=== PATIENT | female | born 1990 | race African-American/Black ===

== ENCOUNTER 2016-09-17 20:13 | Emergency (ER) | payer OTHER ==
[2016-09-17 20:22] VITALS: BP 125/79; PULSE 92; TEMP 98.4; BMI 26.6
--- NOTE | 2016-09-17 20:29 | PDOC ---
History of Present Illness - General Chief Complaint: Headache Stated Complaint: HEADACHE,PAIN Time Seen by Provider: 09/17/16 20:28 Past History - Past Medical History Allergies/Adverse Reactions: Allergies Allergy/AdvReac Type Severity Reaction Status Date / Time No Known Allergies Allergy Verified 09/17/16 20:23 Home Medications: Ambulatory Orders Albuterol Sulfate Inhaler - [Ventolin HFA Inhaler -] 2 inh PO Q4H #1 inh Azithromycin [Zithromax Z-SHALOM (5 DAYS) -] 250 mg PO ASDIR #6 tablet 02/09/14 Other medical history: left ovarian cyst - Reproductive History (#): 3 Cervical CA: No Dysfunctional Uterine Bleeding: No Ectopic : No Endometrial CA: No Polycystic Ovaries: No Therapeutic (s) & number: Yes (2) Tubal Ligation: No - Immunization History Immunization Up to Date: Yes - Psycho/Social/Smoking Cessation Hx Anxiety: No Suicidal Ideation: No Smoking Status: No Smoking History: Never smoked Number of Cigarettes Smoked Daily: 1 Information on smoking cessation initiated: No Hx Alcohol Use: Yes (SOCIAL) Drug/Substance Use Hx: No Substance Use Type: Cocaine, Marijuana Hx Substance Use Treatment: No *Physical Exam - Vital Signs Last Vital Signs Temp Pulse Resp BP Pulse Ox 98.4 F 92 H 18 125/79 99 09/17/16 20:19 09/17/16 20:19 09/17/16 20:19 09/17/16 20:19 09/17/16 20:19
--- NOTE | 2016-09-17 21:38 | PDOC ---
History of Present Illness - General History Source: Patient Exam Limitations: No Limitations - History of Present Illness Initial Comments: 09/17/16 21:57 The patient is a 26-year-old female with a significant past medical history of an ovarian cyst, and presents to the emergency department with headache, ear pain, and abdominal pain since 20 hours ago. She reports the pain to her left jehovah's witness, eyeball, and ear, which she describes as a continuous sharp, throbbing, and pressure-like sensation. She reports relief when she rubs robustly on those areas. She reports she took 2 extra strength Tylenol and Benadryl earlier today which put her to sleep for a few hours. She states she has not experienced this type of pain before. She also reports of nausea and hot flashes in the morning accompanied by a sharp, pressure-like abdominal pain, located at the LUQ. She states she also had an intravenous injection of cocaine earlier this month on her left arm and is concerned about a knot at the point of injection. The patient denies chest pain, shortness of breath, visual changes, and dizziness. The patient denies vomit, diarrhea and constipation. The patient denies dysuria, frequency, urgency and hematuria. LMP- ended 2 days ago Allergies: NKDA Past Surgical History: None reported Social History: Current everyday smoker, occasional substance use PCP: Dr. Isidro Davidson <Ara Mccauley - Last Filed: 09/17/16 21:57> - General History Source: Patient <Jodi Ramsay - Last Filed: 09/17/16 22:33> <Chuyita Faustin - Last Filed: 09/18/16 21:31> - General Chief Complaint: Headache Stated Complaint: HEADACHE,PAIN Time Seen by Provider: 09/17/16 20:28 Past History <Ara Mccauley - Last Filed: 09/17/16 21:57> - Past Medical History Other medical history: left ovarian cyst - Reproductive History (#): 3 Cervical CA: No Dysfunctional Uterine Bleeding: No Ectopic : No Endometrial CA: No Polycystic Ovaries: No Therapeutic (s) & number: Yes (2) Tubal Ligation: No - Immunization History Immunization Up to Date: Yes - Psycho/Social/Smoking Cessation Hx Anxiety: No Suicidal Ideation: No Smoking Status: No Smoking History: Never smoked Number of Cigarettes Smoked Daily: 1 Information on smoking cessation initiated: No Hx Alcohol Use: Yes (SOCIAL) Drug/Substance Use Hx: No Substance Use Type: Cocaine, Marijuana Hx Substance Use Treatment: No <Jodi Ramsay - Last Filed: 09/17/16 22:33> <Chuyita Faustin - Last Filed: 09/18/16 21:31> - Past Medical History Allergies/Adverse Reactions: Allergies Allergy/AdvReac Type Severity Reaction Status Date / Time No Known Allergies Allergy Verified 09/17/16 20:23 Home Medications: Ambulatory Orders NK [No Known Home Medication] 09/17/16 Review of Systems - Review of Systems Able to Perform ROS?: Yes Comments:: 09/17/16 21:57 CONSTITUTIONAL: Absent: fever, chills, diaphoresis, generalized weakness, malaise, loss of appetite HEENT: Present: (+) ear pain, (+) eye pain Absent: rhinorrhea, nasal congestion, throat pain, throat swelling, difficulty swallowing, mouth swelling, visual changes CARDIOVASCULAR: Absent: chest pain, syncope, palpitations, irregular heart rate, lightheadedness , peripheral edema RESPIRATORY: Absent: cough, shortness of breath, dyspnea with exertion, orthopnea, wheezing, stridor, hemoptysis GASTROINTESTINAL: Present: (+) abdominal pain, (+) nausea Absent: abdominal distension, vomiting, diarrhea, constipation, melena, hematochezia GENITOURINARY: Absent: dysuria, frequency, urgency, hesitancy, hematuria, flank pain, genital pain MUSCULOSKELETAL: Absent: myalgia, arthralgia, joint swelling SKIN: Absent: rash, itching, pallor HEMATOLOGIC/IMMUNOLOGIC: Absent: easy bleeding, easy bruising, lymphadenopathy, frequent infections ENDOCRINE: Absent: unexplained weight gain, unexplained weight loss, heat intolerance, cold intolerance NEUROLOGIC: Present: (+) headache Absent: focal weakness or paresthesias, dizziness, unsteady gait, seizure, mental status changes, bladder or bowel incontinence PSYCHIATRIC: Absent: anxiety, depression, suicidal or homicidal ideation, hallucinations. <Ara Mccauley - Last Filed: 09/17/16 21:57> - Review of Systems Able to Perform ROS?: Yes Comments:: 09/17/16 22:35 CONSTITUTIONAL: Absent: fever, chills, diaphoresis, generalized weakness, malaise, loss of appetite HEENT: Absent: rhinorrhea, nasal congestion, throat pain, throat swelling, difficulty swallowing, mouth swelling, ear pain, eye pain, visual Changes CARDIOVASCULAR: Absent: chest pain, loss of consciousness, palpitations, irregular heart rate, peripheral edema RESPIRATORY: Absent: cough, shortness of breath, dyspnea with exertion, orthopnea, wheezing, stridor, hemoptysis GASTROINTESTINAL: Absent: abdominal pain, abdominal distension, nausea, vomiting, diarrhea, constipation, melena, hematochezia GENITOURINARY: Absent: dysuria, frequency, urgency, hesitancy, hematuria, flank pain, genital pain MUSCULOSKELETAL: Absent: myalgia, arthralgia, joint swelling SKIN: Absent: rash, itching, pallor HEMATOLOGIC/IMMUNOLOGIC: Absent: easy bleeding, easy bruising, lymphadenopathy, frequent infections ENDOCRINE: Absent: unexplained weight gain, unexplained weight loss, heat intolerance, cold intolerance NEUROLOGIC: Absent: headache, focal weakness or paresthesias, dizziness, unsteady gait, seizure, mental status changes, bladder or bowel incontinence PSYCHIATRIC: Absent: anxiety, depression, suicidal or homicidal ideation, hallucinations. Is the patient limited Mosotho proficient: No <Jodi Ramsay - Last Filed: 09/17/16 22:33> *Physical Exam - Vital Signs Last Vital Signs Temp Pulse Resp BP Pulse Ox 98.4 F 92 H 18 125/79 99 09/17/16 20:19 09/17/16 20:19 09/17/16 20:19 09/17/16 20:19 09/17/16 20:19 - Physical Exam Comments: 09/17/16 21:57 GENERAL: Well developed, well nourished. Awake and alert. No acute distress. HEENT: Normocephalic, atraumatic. PERRLA, EOMI. No conjunctival pallor. Sclera are non- icteric. Moist mucous membranes. Oropharynx is clear. NECK: Supple. Full ROM. No JVD. Carotid pulses 2+ and symmetric, without bruits. No thyromegaly. No lymphadenopathy. CARDIOVASCULAR: Regular rate and rhythm. No murmurs, rubs, or gallops. Distal pulses are 2+ and symmetric. PULMONARY: No evidence of respiratory distress. Lungs clear to auscultation bilaterally. No wheezing, rales or rhonchi. ABDOMINAL: Soft. Non-tender. Non-distended. No rebound or guarding. No organomegaly. Normoactive bowel sounds. MUSCULOSKELETAL Normal range of motion at all joints. No bony deformities or tenderness. No CVA tenderness. EXTREMITIES: No cyanosis. No clubbing. No edema. No calf tenderness. SKIN: Warm and dry. Normal capillary refill. No rashes. No jaundice. NEUROLOGICAL: Alert, awake, appropriate. Cranial nerves 2-12 intact. No deficits to light touch and temperature in face, upper extremities and lower extremities. No motor deficits in the in face, upper extremities and lower extremities. Normoreflexic in the upper and lower extremities. Normal speech. Toes are down- going bilaterally. Gait is normal without ataxia. PSYCHIATRIC: Cooperative. Good eye contact. Appropriate mood and affect. <Mccauley,Ara - Last Filed: 09/17/16 21:57> - Vital Signs Last Vital Signs Temp Pulse Resp BP Pulse Ox 98.4 F 92 H 18 125/79 99 09/17/16 20:19 09/17/16 20:19 09/17/16 20:19 09/17/16 20:19 09/17/16 20:19 - Physical Exam Comments: 09/17/16 22:36 GENERAL: Well developed, well nourished. Awake and alert. No acute distress. HEENT: Normocephalic, atraumatic. PERRLA, EOMI. No conjunctival pallor. Sclera are non- icteric. Moist mucous membranes. Oropharynx is clear. NECK: Supple. Full ROM. No JVD. Carotid pulses 2+ and symmetric, without bruits. No thyromegaly. No lymphadenopathy. CARDIOVASCULAR: Regular rate and rhythm. No murmurs, rubs, or gallops. Distal pulses are 2+ and symmetric. PULMONARY: No evidence of respiratory distress. Lungs clear to auscultation bilaterally. No wheezing, rales or rhonchi. ABDOMINAL: Soft. Non-tender. Non-distended. No rebound or guarding. No organomegaly. Normoactive bowel sounds. MUSCULOSKELETAL Normal range of motion at all joints. No bony deformities or tenderness. No CVA tenderness. EXTREMITIES: No cyanosis. No clubbing. No edema. No calf tenderness. SKIN: Warm and dry. Normal capillary refill. No rashes. No jaundice. NEUROLOGICAL: Alert, awake, appropriate. Cranial nerves 2-12 intact. No deficits to light touch and temperature in face, upper extremities and lower extremities. No motor deficits in the in face, upper extremities and lower extremities. Normoreflexic in the upper and lower extremities. Normal speech. Toes are down- going bilaterally. Gait is normal without ataxia. PSYCHIATRIC: Cooperative. Good eye contact. Appropriate mood and affect. <Jodi Ramsay - Last Filed: 09/17/16 22:33> - Vital Signs Last Vital Signs Temp Pulse Resp BP Pulse Ox 98.4 F 92 H 18 125/79 99 09/17/16 20:19 09/17/16 20:19 09/17/16 20:19 09/17/16 20:19 09/17/16 20:19 <Chuyita Faustin - Last Filed: 09/18/16 21:31> ED Treatment Course - Medications Given in the ED: ED Medications Discontinued Medications Generic Name Dose Route Start Last Admin Trade Name Freq PRN Reason Stop Dose Admin Ibuprofen 600 mg 09/17/16 22:29 09/17/16 22:33 Motrin - PO 09/17/16 22:30 600 mg ONCE ONE Administration <Chuyita Faustin - Last Filed: 09/18/16 21:31> *DC/Admit/Observation/Transfer - Attestations Scribe Attestion: 09/17/16 21:58 Documentation prepared by Ara Mccauley, acting as medical investigator for NOE Floyd. <Ara Mccauley - Last Filed: 09/17/16 21:57> - Discharge Dispostion Admit: No <Jodi Ramsay - Last Filed: 09/17/16 22:33> <Chuyita Faustin - Last Filed: 09/18/16 21:31> Diagnosis at time of Disposition: Headache Qualifiers: Headache type: tension-type Headache chronicity pattern: acute headache Intractability: not intractable Qualified Code(s): G44.209 - Tension-type headache, unspecified, not intractable - Discharge Dispostion Disposition: HOME Condition at time of disposition: Stable - Referrals Referrals: Isidro Davidson MD [Primary Care Provider] - Parrish Avalos MD [Staff Physician] - - Patient Instructions Printed Discharge Instructions: DI for Headache Additional Instructions: Increase fluids Rest Follow up with your physician or the Neurologist Return to the ER for severe/persistent/worsening symptoms
[2016-09-17] MEDS ORDERED: IBUPROFEN 600 MG TABLET (FP) PO ONE ×2 (22:29→22:31)
== END 2016-09-17 22:41 | disposition home or self-care (01) ==
LOC: JER 20:13
DX: G44.209 Tension-type headache, unspecified, not intractable (principal)
CPT/HCPCS: 99281-25

== ENCOUNTER 2016-11-11 19:02 | Emergency (ER) | payer OTHER ==
[2016-11-11 19:11] VITALS: BMI 25.4
--- NOTE | 2016-11-11 19:30 | PDOC ---
History of Present Illness - General History Source: Patient Exam Limitations: No Limitations - History of Present Illness Travel History: No Initial Comments: 11/11/16 20:27 LMP: 11/08/2016 26-year-old female with no medical history presents to the emergency department complaining of suprapubic pressure with right-sided flank discomfort. Discomfort is described as 4/10 dull nonradiating intermittent discomfort 2 hours with hematuria but denies urinary urgency/frequency, fever/chills, nausea/ vomiting, chest pain, shortness of breath, abdominal discomfort. Timing/Duration: reports: intermittent Quality: reports: mild Abdominal Pain Onset Location: reports: suprapubic Pain Radiation: reports: no radiation <Jodi Ramsay - Last Filed: 11/11/16 23:00> - History of Present Illness Initial Comments: 11/12/16 03:15 Pt seen by Midlevel Provider under my direct supervision. Documentation has been prepared under my direction and personally reviewed by me in its entirety. I attest that this document accurately reflects all work, treatment, procedures and medical decision-making performed. I agree with plan as outlined by Midlevel Provider. <Kenya Munoz I - Last Filed: 11/12/16 03:15> - General Chief Complaint: Pain Stated Complaint: STOMACH PAIN Time Seen by Provider: 11/11/16 19:28 Past History - Past Medical History Other medical history: Pt denies - Reproductive History (#): 3 Cervical CA: No Dysfunctional Uterine Bleeding: No Ectopic : No Endometrial CA: No Polycystic Ovaries: No Therapeutic (s) & number: Yes (2) Tubal Ligation: No - Immunization History Immunization Up to Date: Yes - Psycho/Social/Smoking Cessation Hx Anxiety: No Suicidal Ideation: No Smoking Status: No Smoking History: Never smoked Have you smoked in the past 12 months: No Number of Cigarettes Smoked Daily: 1 Information on smoking cessation initiated: No Hx Alcohol Use: No Drug/Substance Use Hx: No Substance Use Type: Cocaine, Marijuana Hx Substance Use Treatment: No <Jodi Ramsay - Last Filed: 11/11/16 23:00> <Kenya Munoz I - Last Filed: 11/12/16 03:15> - Past Medical History Allergies/Adverse Reactions: Allergies Allergy/AdvReac Type Severity Reaction Status Date / Time No Known Allergies Allergy Verified 11/11/16 19:08 Home Medications: Ambulatory Orders NK [No Known Home Medication] 09/17/16 Review of Systems - Review of Systems Able to Perform ROS?: Yes Comments:: 11/11/16 20:28 CONSTITUTIONAL: Absent: fever, chills, diaphoresis, generalized weakness, malaise, loss of appetite HEENT: Absent: rhinorrhea, nasal congestion, throat pain, throat swelling, difficulty swallowing, mouth swelling, ear pain, eye pain, visual Changes CARDIOVASCULAR: Absent: chest pain, loss of consciousness, palpitations, irregular heart rate, peripheral edema RESPIRATORY: Absent: cough, shortness of breath, dyspnea with exertion, orthopnea, wheezing, stridor, hemoptysis GASTROINTESTINAL: +suprapubic pain/ right flank pain Absent: abdominal pain, abdominal distension, nausea, vomiting, diarrhea, constipation, melena, hematochezia GENITOURINARY: Absent: dysuria, frequency, urgency, hesitancy, hematuria, genital pain MUSCULOSKELETAL: Absent: myalgia, arthralgia, joint swelling SKIN: Absent: rash, itching, pallor HEMATOLOGIC/IMMUNOLOGIC: Absent: easy bleeding, easy bruising, lymphadenopathy, frequent infections ENDOCRINE: Absent: unexplained weight gain, unexplained weight loss, heat intolerance, cold intolerance NEUROLOGIC: Absent: headache, focal weakness or paresthesias, dizziness, unsteady gait, seizure, mental status changes, bladder or bowel incontinence PSYCHIATRIC: Absent: anxiety, depression, suicidal or homicidal ideation, hallucinations. Is the patient limited Ecuadorean proficient: No <Jodi Ramsay - Last Filed: 11/11/16 23:00> *Physical Exam - Vital Signs Last Vital Signs Temp Pulse Resp BP Pulse Ox 98.0 F 60 20 143/74 100 11/11/16 19:09 11/11/16 19:09 11/11/16 19:09 11/11/16 19:09 11/11/16 19:09 - Physical Exam Comments: 11/11/16 20:29 GENERAL: Well developed, well nourished. Awake and alert. No acute distress. HEENT: Normocephalic, atraumatic. PERRLA, EOMI. No conjunctival pallor. Sclera are non- icteric. Moist mucous membranes. Oropharynx is clear. NECK: Supple. Full ROM. No JVD. Carotid pulses 2+ and symmetric, without bruits. No thyromegaly. No lymphadenopathy. CARDIOVASCULAR: Regular rate and rhythm. No murmurs, rubs, or gallops. Distal pulses are 2+ and symmetric. PULMONARY: No evidence of respiratory distress. Lungs clear to auscultation bilaterally. No wheezing, rales or rhonchi. ABDOMINAL: Soft. Non-tender. Non-distended. No rebound or guarding. No organomegaly. Normoactive bowel sounds. MUSCULOSKELETAL Normal range of motion at all joints. No bony deformities or tenderness. No CVA tenderness. EXTREMITIES: No cyanosis. No clubbing. No edema. No calf tenderness. SKIN: Warm and dry. Normal capillary refill. No rashes. No jaundice. NEUROLOGICAL: Alert, awake, appropriate. Cranial nerves 2-12 intact. No deficits to light touch and temperature in face, upper extremities and lower extremities. No motor deficits in the in face, upper extremities and lower extremities. Normoreflexic in the upper and lower extremities. Normal speech. Toes are down- going bilaterally. Gait is normal without ataxia. PSYCHIATRIC: Cooperative. Good eye contact. Appropriate mood and affect. Pelvic: External genitalia normal without lesions. Vaginal vault is clear without blood or discharge. Cervix is long and closed. No cervical motion tenderness. Uterus is nontender and normal in size. Adnexa are nontender and without masses. <Jodi Ramsay - Last Filed: 11/11/16 23:00> - Vital Signs Last Vital Signs Temp Pulse Resp BP Pulse Ox 97.2 F L 18 L 20 128/70 100 11/11/16 22:57 11/11/16 22:57 11/11/16 22:57 11/11/16 22:57 11/11/16 22:57 <Kenya Munoz I - Last Filed: 11/12/16 03:15> ED Treatment Course - LABORATORY CBC & Chemistry Diagram: 11/11/16 19:50 11/11/16 19:50 - RADIOLOGY Radiograph Interpretation: 11/11/16 20:[address]: No CT evidence of urolithiasis or obstructive pathology small amount of free fluid is noted within the cul-de-sac which may be physiologic in nature 11/11/16 22:58 <Jodi Ramsay - Last Filed: 11/11/16 23:00> - LABORATORY CBC & Chemistry Diagram: 11/11/16 19:50 11/11/16 19:50 - ADDITIONAL ORDERS Additional order review: Laboratory Results 11/11/16 11/11/16 11/11/16 20:09 19:50 19:34 Sodium 140 Potassium 3.7 Chloride 108 H Carbon Dioxide 28 Anion Gap 4 L BUN 7 Creatinine 0.9 Creat Clearance w eGFR > 60 Random Glucose 93 Calcium 8.5 Total Bilirubin 0.2 D AST 9 L D ALT 13 Alkaline Phosphatase 57 Total Protein 6.4 Albumin 3.4 Urine Color Yellow Urine Appearance Cloudy Urine pH 8.0 D Ur Specific Painter 1.020 Urine Protein 1+ H Urine Glucose (UA) Negative Urine Ketones Negative Urine Blood 2+ H Urine Nitrite Negative Urine Bilirubin Negative Urine Urobilinogen 2.0 H Urine RBC 1010 Urine WBC 8 Ur Epithelial Cells Moderate Urine Bacteria Rare Urine Mucus Rare Urine HCG, Qual Negative 11/11/16 19:50 RBC 3.63 MCV 95.4 MCHC 34.0 RDW 13.6 MPV 8.8 Neutrophils % 56.1 Lymphocytes % 35.2 Monocytes % 6.2 Eosinophils % 1.7 Basophils % 0.8 <Kenya Munoz I - Last Filed: 11/12/16 03:15> Progress Note - Progress Note Progress Note: 2205hrs: Went to reassess the patient but she asked me to return later because she is watching an episode on her iPad. <Jodi Ramsay - Last Filed: 11/11/16 23:00> *DC/Admit/Observation/Transfer - Discharge Dispostion Admit: No <Jodi Ramsay - Last Filed: 11/11/16 23:00> <Kenya Munoz I - Last Filed: 11/12/16 03:15> Diagnosis at time of Disposition: Hematuria Qualifiers: Hematuria type: unspecified type Qualified Code(s): R31.9 - Hematuria, unspecified - Discharge Dispostion Disposition: HOME Condition at time of disposition: Stable - Referrals Referrals: Sandra Davidson [Primary Care Provider] - Rosales Palomino MD [Staff Physician] - Demetrius De La Rosa MD [Staff Physician] - - Patient Instructions Printed Discharge Instructions: DI for Hematuria Additional Instructions: Follow-up with your physician and the urologist/farm loan representative listed on your discharge. Return back to the emergency department for severe/persistent or worsening symptoms. Urologist: Dr. Palomino Unit Aide Tech: Drt. De La Rosa Print Language: COMORAN
[2016-11-11 19:50] LABS: URINE APPEARANCE CLOUDY; URINE BILIRUBIN NEGATIVE (NEGATIVE); URINE BLOOD 2+ (NEGATIVE); URINE COLOR YELLOW; URINE GLUCOSE (UA) NEGATIVE (NEGATIVE); URINE KETONE NEGATIVE (NEGATIVE); URINE LEUK ESTERASE TRACE (NEGATIVE); URINE NITRITE NEGATIVE (NEGATIVE)
[2016-11-11 19:55] LABS: URINE PROTEIN 1+ (NEGATIVE)
[2016-11-11 20:02] LABS: BASOPHIL 0.8 % (0-2.0); EOSINOPHIL 1.7 % (0-4.5); MCH 32.4 pg (25.7-33.7); MEAN CELL VOLUME 95.4 fl (80-96); MEAN PLT VOLUME 8.8 fl (7.5-11.1); NEUTROPHILS 56.1 % (42.8-82.8); PLATELET COUNT 243 K/MM3 (134-434); RDW 13.6 % (11.6-15.6)
[2016-11-11 20:31] LABS: ALBUMIN 3.4 g/dl (3.4-5.0); ANION GAP 4 (8-16); BILIRUBIN,TOTAL 0.2 mg/dL (0.2-1.0); CALCIUM 8.5 mg/dL (8.5-10.1); CO2 28 mmol/L (21-32); CREATININE 0.9 mg/dL (0.55-1.02); GLUCOSE,RANDOM 93 mg/dL (74-106); SGOT/AST 9 U/L (15-37); SGPT/ALT 13 U/L (12-78); TOT PROT 6.4 g/dl (6.4-8.2)
[2016-11-11 20:32] LABS: ALK PHOS 57 U/L (45-117)
[2016-11-11 20:44] LABS: URINE RBC 1010 /hpf (0-3)
[2016-11-11 20:45] LABS: URINE BACTERIA RARE /hpf (NONE SEEN); URINE MUCUS RARE; URINE WBC 8 /hpf (3-5)
[2016-11-11 22:58] VITALS: BP 128/70; PULSE 18; TEMP 97.2
== END 2016-11-11 23:02 | disposition home or self-care (01) ==
LOC: JER 19:02
DX: R31.9 Hematuria, unspecified (principal)
CPT/HCPCS: 36415; 74176; 80053; 81003; 81015; 84703; 85025; 87086; 99283-25

== ENCOUNTER 2018-06-04 09:42 | Emergency (ER) | payer SELFPAY ==
[2018-06-04] MEDS ORDERED: IBUPROFEN 400 MG TABLET (FP) PO ONE ×2 (10:06→10:39)
[2018-06-04 10:07] VITALS: BP 108/68; PULSE 121; BMI 21.9
[2018-06-04] MEDS ORDERED: ALBUTEROL SO4 2.5/IPRATROPIUM 0.5 INH SOL 3 ML VIAL.NEB. NEB ONE ×2 (10:31→10:40)
--- NOTE | 2018-06-04 10:36 | PDOC ---
History of Present Illness - General Chief Complaint: Cold Symptoms Stated Complaint: PAIN Time Seen by Provider: 06/04/18 10:24 History Source: Patient Exam Limitations: No Limitations - History of Present Illness Initial Comments: 06/04/18 10:32 28 year old female with no significant medical or surgical history presents with complaints of cold symptoms since last night. Patient states sorethroat, with headache and bodyaches and very little coughing. Took ibuprofen with no relief of symptoms. States no ill contacts. Timing/Duration: reports: yesterday Severity: reports: moderate Possible Cause: Yes: no prior episodes Modifying Factors: improves with: rest Associated Symptoms: reports: fever/chills, headache, sore throat Aspirin Received prior to arrival: Yes: no aspirin today ASA Contraindications(Core Measure): No: Allergy Beta Michael Contraindications(Core Measure): Yes: Not Prescribed Beta Michael Given by EMS(Core Measure): No Beta Michael Taken at Home(Core Measure): No Beta Michael Not Indicated at this Time(Core Measure): No Past History - Travel Traveled outside of the country in the last 30 days: No Close contact w/someone who was outside of country & ill: No - Past Medical History Allergies/Adverse Reactions: Allergies Allergy/AdvReac Type Severity Reaction Status Date / Time No Known Allergies Allergy Verified 06/04/18 10:00 Home Medications: Ambulatory Orders Albuterol Sulfate [Albuterol Sulfate Hfa] 8.5 gm IH QID PRN #1 [email or web address] Ibuprofen 600 mg PO QID #20 tablet 06/04/18 Ibuprofen [Motrin -] 600 mg PO TID 06/04/18 Loratadine [Claritin] 10 mg PO DAILY #10 tablet 06/04/18 COPD: No - Reproductive History (#): 3 Cervical CA: No Dysfunctional Uterine Bleeding: No Ectopic : No Endometrial CA: No Polycystic Ovaries: No Therapeutic (s) & number: Yes (2) Tubal Ligation: No - Immunization History Immunization Up to Date: Yes - Suicide/Smoking/Psychosocial Hx Smoking Status: No Smoking History: Never smoked Have you smoked in the past 12 months: No Number of Cigarettes Smoked Daily: 1 Hx Alcohol Use: No Drug/Substance Use Hx: No Substance Use Type: None Hx Substance Use Treatment: No Respiratory Specific PMHX - Complaint Specific PMHX Bronchitis: Yes Review of Systems - Review of Systems Able to Perform ROS?: Yes Is the patient limited Congolese proficient: No Constitutional: Yes: Chills, Fever, Malaise, Weakness HEENTM: Yes: Throat Pain Respiratory: Yes: Shortness of Breath Cardiac (ROS): No: Chest Pain, Lightheadedness ABD/GI: Yes: Poor Appetite, Poor Fluid Intake Musculoskeletal: Yes: Joint Pain *Physical Exam - Vital Signs Last Vital Signs Temp Pulse Resp BP Pulse Ox 101.1 F H 121 H 26 H 108/68 99 06/04/18 10:05 06/04/18 10:05 06/04/18 10:05 06/04/18 10:05 06/04/18 10:05 - Physical Exam General Appearance: Yes: Nourished, Appropriately Dressed. No: Apparent Distress HEENT: positive: JOHN, Pharyngeal Erythema, Tonsillar Erythema Neck: positive: Supple. negative: Lymphadenopathy (R), Lymphadenopathy (L) Respiratory/Chest: positive: Lungs Clear, Normal Breath Sounds Cardiovascular: positive: Regular Rhythm, Regular Rate Neurologic: positive: deck specialist II-XII NML intact, Fully Oriented, Alert ED Treatment Course - Medications Given in the ED: ED Medications Discontinued Medications Generic Name Dose Route Start Last Admin Trade Name Freq PRN Reason Stop Dose Admin Ibuprofen 800 mg 06/04/18 10:06 06/04/18 10:07 Motrin - PO 06/04/18 10:07 800 mg NOW ONE Administration Medical Decision Making - Medical Decision Making 06/04/18 10:36 28 year old female with no significant medical or surgical history presents with complaints of cold symptoms since last night. Plan: urine preg neb treatment received ibuprofen in triage chest xray 06/04/18 10:36 throat culture *DC/Admit/Observation/Transfer Diagnosis at time of Disposition: Flu-like symptoms, Bronchitis - Discharge Dispostion Disposition: HOME Condition at time of disposition: Good Decision to Admit order: No - Prescriptions Prescriptions: Albuterol Sulfate [Albuterol Sulfate Hfa] 8.5 gm IH QID PRN #1 hfa.[email or web address] PRN Reason: Cough Ibuprofen 600 mg PO QID #20 tablet Loratadine [Claritin] 10 mg PO DAILY #10 tablet - Referrals - Patient Instructions Printed Discharge Instructions: DI for Acute Bronchitis, DI for Viral Upper Respiratory Infection -- Adult Additional Instructions: Please take medication as prescribed Drink plenty fluids Rest Take ibuprofen ever 6 hours with food for fever and bodyache Call primary physician for follow up appointment - Post Discharge Activity Forms/Work/School Notes: Back to Work
[2018-06-04] MEDS ORDERED: ALBUTEROL SO4 2.5/IPRATROPIUM 0.5 INH SOL 3 ML VIAL.NEB. NEB SCH (11:15)
[2018-06-04 11:37] VITALS: TEMP 99.3
== END 2018-06-04 11:57 | disposition home or self-care (01) ==
LOC: JERFT 09:42
PROC: 3E0F7GC Introduction of Other Therapeutic Substance into Respiratory Tract, Via Natural or Artificial Opening (ICD-10-PCS; principal; 2018-06-04)
DX: J40 Bronchitis, not specified as acute or chronic (principal); J11.1 Influenza due to unidentified influenza virus with other respiratory manifestations
CPT/HCPCS: 71046-TC-FY; 84703; 87070; 87880; 99281-25

== ENCOUNTER 2019-01-14 11:21 | Emergency (ER) | payer OTHER ==
[2019-01-14 11:35] VITALS: BP 116/82; PULSE 94; TEMP 98.3; BMI 27.9
[2019-01-14] MEDS ORDERED: predniSONE 20 MG TABLET (UD) PO ONE (12:11)
[2019-01-14] MEDS: ALBUTEROL SO4 2.5/IPRATROPIUM 0.5 INH SOL 3 ML VIAL.NEB. NEB SCH ×4 (12:12→13:01)
[2019-01-14] MEDS ORDERED: predniSONE 20 MG TABLET (UD) ONE (12:14)
[2019-01-14] MEDS ORDERED: ALBUTEROL SO4 2.5/IPRATROPIUM 0.5 INH SOL 3 ML VIAL.NEB. NEB ONE (12:14)
--- NOTE | 2019-01-14 13:04 | PDOC ---
History of Present Illness - General Chief Complaint: Wheezing Stated Complaint: LIGHTHEADED/NAUSEA Time Seen by Provider: 01/14/19 11:51 History Source: Patient Exam Limitations: No Limitations - History of Present Illness Initial Comments: 01/14/19 12:09 28-year-old female presents to ED with continual wheezing and coughing despite using her inhaler. Patient states history of asthma along with positive history of cigarette smoking. Patient denies fever, chills, chest pain, productive cough, or weakness. Patient states wheezing does prevent her from sleeping and is otherwise just tired. Timing/Duration: reports: getting worse Severity: reports: mild, moderate Possible Cause: Yes: occasional episodes Modifying Factors: improves with: albuterol inhaler, coughing Associated Symptoms: reports: cough, shortness of breath, wheezing Past History - Travel Traveled outside of the country in the last 30 days: No Close contact w/someone who was outside of country & ill: No - Past Medical History Allergies/Adverse Reactions: Allergies Allergy/AdvReac Type Severity Reaction Status Date / Time No Known Allergies Allergy Verified 06/04/18 10:00 Home Medications: Ambulatory Orders Albuterol Sulfate [Albuterol Sulfate Hfa] 8.5 gm IH QID PRN #1 hfa.[email or web address] Ibuprofen 600 mg PO QID #20 tablet 06/04/18 Ibuprofen [Motrin -] 600 mg PO TID 06/04/18 Loratadine [Claritin] 10 mg PO DAILY #10 tablet 06/04/18 COPD: No - Reproductive History (#): 3 Cervical CA: No Dysfunctional Uterine Bleeding: No Ectopic : No Endometrial CA: No Polycystic Ovaries: No Therapeutic (s) & number: Yes (2) Tubal Ligation: No - Immunization History Immunization Up to Date: Yes - Psycho Social/Smoking Cessation Hx Smoking Status: No Smoking History: Unknown if ever smoked Have you smoked in the past 12 months: No Number of Cigarettes Smoked Daily: 1 Information on smoking cessation initiated: No Hx Alcohol Use: No Drug/Substance Use Hx: No Substance Use Type: None Hx Substance Use Treatment: No Patient Lives Alone: No Lives with/in: parents Respiratory Specific PMHX - Complaint Specific PMHX Hx Asthma: Yes Hx Bronchitis: Yes Review of Systems - Review of Systems Able to Perform ROS?: Yes Constitutional: No: Symptoms Reported HEENTM: No: Symptoms Reported Respiratory: Yes: Cough, Shortness of Breath, Wheezing Cardiac (ROS): No: Symptoms Reported ABD/GI: No: Symptoms Reported : No: Symptoms Reported Musculoskeletal: No: Symptoms Reported Integumentary: No: Symptoms Reported Neurological: No: Symptoms reported Hematologic/Lymphatic: No: Symptoms Reported *Physical Exam - Vital Signs Last Vital Signs Temp Pulse Resp BP Pulse Ox 98.3 F 94 H 16 116/82 96 01/14/19 11:32 01/14/19 11:32 01/14/19 11:32 01/14/19 11:32 01/14/19 11:32 - Physical Exam General Appearance: Yes: Nourished, Appropriately Dressed. No: Apparent Distress HEENT: negative: Pale Conjunctivae Neck: positive: Supple Respiratory/Chest: positive: Wheezing (Bilateral inspiratory and expiratory.). negative: Respiratory Distress, Accessory Muscle Use, Labored Respiration, Rapid RR Cardiovascular: positive: Regular Rhythm, Regular Rate. negative: Murmur Gastrointestinal/Abdominal: positive: Soft. negative: Tenderness Integumentary: positive: Normal Color, Warm, Moist Neurologic: positive: Motor Strength 5/5 (ambulatory) ED Treatment Course - Medications Given in the ED: ED Medications Discontinued Medications Generic Name Dose Route Start Last Admin Trade Name Freq PRN Reason Stop Dose Admin Prednisone 60 mg 01/14/19 12:11 01/14/19 12:21 Deltasone - PO 01/14/19 12:12 60 mg ONCE ONE Administration Medical Decision Making - Medical Decision Making 01/14/19 12:04 Chief complaint: Wheezing cough and mild shortness of breath with coughing episodes for the past 2 days. Patient with history of asthma and bronchitis along with daily cigarette smoking. Exam: Patient with auditory wheezing bilaterally on inspiration and expiration. No accessory muscle usage no dyspnea. Vital signs stable. Plan: P.o. prednisone DuoNeb x4 and reevaluation. 01/14/19 13:55 Patient states feeling much better. Patient with mild expiratory wheeze bilaterally. Oxygen level 96 with a heart rate of 98. Discharge - Discharge Information Problems reviewed: Yes Clinical Impression/Diagnosis: Asthma exacerbation, Acute wheezy bronchitis Condition: Improved Disposition: HOME - Follow up/Referral Referrals: Isidro Davidson MD [Primary Care Provider] - - Patient Discharge Instructions Patient Printed Discharge Instructions: DI for Asthma -- Adult Additional Instructions: Please take prednisone starting tomorrow since you were given your first dose here today. Please use inhaler as needed for wheezing. Take antibiotics as prescribed. Do not go outdoors to avoid bronchospasm. Rest and drink plenty of fluids. - Post Discharge Activity Work/Back to School Note: Parent(s) Back to Work Note
== END 2019-01-14 14:19 | disposition home or self-care (01) ==
LOC: JER 11:21
PROC: 3E0F7GC Introduction of Other Therapeutic Substance into Respiratory Tract, Via Natural or Artificial Opening (ICD-10-PCS; principal; 2019-01-14)
DX: J45.901 Unspecified asthma with (acute) exacerbation (principal); J20.9 Acute bronchitis, unspecified; F17.210 Nicotine dependence, cigarettes, uncomplicated
CPT/HCPCS: 94640; 99281-25

== ENCOUNTER 2019-02-12 17:33 | Emergency (ER) | payer OTHER ==
--- NOTE | 2019-02-12 17:38 | PDOC ---
History of Present Illness - General Stated Complaint: ASTHMA Time Seen by Provider: 02/12/19 17:38 - History of Present Illness Initial Comments: 02/12/19 17:55 28 year old woman with a history of asthma and cigarette smoking who presents with shortness of breath and wheezing that ongoing for the past several days but worse today. The patient reports that she had productive cough last week with green phlegm and was given an antibiotic course that she completed. She reports that this week she has been having cough productive of clear phlegm. She used her albuterol inhaler and machine at home throughout the day but her symptoms worsened just prior to calling EMS. She does not currently take home steroids. She denies chest pain, fever or any other concerning symptoms. She has never been intubated for her asthma. ROS GENERAL/CONSTITUTIONAL: No fever or chills. No weakness. HEAD, EYES, EARS, NOSE AND THROAT: No sore throat. CARDIOVASCULAR: No chest pain + shortness of breath RESPIRATORY: + cough, wheezing, No hemoptysis. SKIN: No rash PE GENERAL: Awake, alert, and fully oriented, in no acute distress HEAD: No signs of trauma, normocephalic, atraumatic EYES: EOMI, sclera anicteric, conjunctiva clear ENT: oropharynx clear without exudates. Moist mucosa NECK: Normal ROM, supple LUNGS: No distress, speaks full sentences, + diffuse expiratory wheeze HEART: Regular rate and rhythm, normal S1 and S2, no murmurs, rubs or gallops, peripheral pulses normal and equal bilaterally. ABDOMEN: Soft, nontender. No guarding, no rebound. No masses EXTREMITIES : Normal inspection, Normal range of motion, no edema. No clubbing or cyanosis. NEUROLOGICAL: Cranial nerves II through XII grossly intact. Normal speech, no focal sensorimotor deficits SKIN: Warm, Dry, normal turgor, no rashes or lesions noted MDM DDX including but not limited to: asthma exacerbation r/o pna ED Course: patient satting above 95 but with persistent and loud diffuse exp wheeze solumedrol, mag and 3x duoneb on reassessment patient improvement of symptoms but with continued exp wheeze CXR: without possible R sided hilar fullness Will send home with prednisone and a zpak Likely will need to sign out to overnight team for flu swab results Jenae Khan, PGY2 Emergency Medicine Past History - Past Medical History Allergies/Adverse Reactions: Allergies Allergy/AdvReac Type Severity Reaction Status Date / Time No Known Allergies Allergy Verified 02/12/19 17:50 Home Medications: Ambulatory Orders Albuterol Sulfate [Albuterol Sulfate Hfa] 8.5 gm IH QID PRN #1 hfa.aer.ad Albuterol 0.083% Nebulizer Maia [Ventolin 0.083% Nebulizer Soln -] 1 neb NEB Q6H PRN #1 box 01/14/19 Albuterol Sulfate Inhaler - [Ventolin HFA Inhaler -] 1 - 2 inh PO QID PRN #1 inhaler 01/14/19 Azithromycin [Zithromax Tri-Leonardo (3 DAYS) -] 500 mg PO DAILY #3 tablet 02/12/19 Prednisone [Prednisone 50 MG TABLETS] 50 mg PO DAILY #7 tablet 02/12/19 Asthma: Yes COPD: No - Reproductive History (#): 3 Cervical CA: No Dysfunctional Uterine Bleeding: No Ectopic : No Endometrial CA: No Polycystic Ovaries: No Therapeutic (s) & number: Yes (2) Tubal Ligation: No - Immunization History Immunization Up to Date: Yes - Psycho Social/Smoking Cessation Hx Smoking Status: No Smoking History: Unknown if ever smoked Have you smoked in the past 12 months: No Number of Cigarettes Smoked Daily: 1 Hx Alcohol Use: No Drug/Substance Use Hx: No Substance Use Type: None Hx Substance Use Treatment: No Discharge - Discharge Information Problems reviewed: Yes Clinical Impression/Diagnosis: Asthma exacerbation Condition: Stable Disposition: HOME - Admission No - Additional Discharge Information Prescriptions: Azithromycin [Zithromax Tri-Leonardo (3 DAYS) -] 500 mg PO DAILY #3 tablet Prednisone [Prednisone 50 MG TABLETS] 50 mg PO DAILY #7 tablet - Follow up/Referral Referrals: Isidro Davidson MD [Primary Care Provider] - - Patient Discharge Instructions Patient Printed Discharge Instructions: DI for Asthma -- Adult Additional Instructions: You were seen in the ED for complaints of shortness of breath and asthma symptoms In the ED you were treated with breathing treatments, steroids and magnesium You had improvement of symptoms and there does not appear to be an acute need for immediate hospitalization. You are advised to follow up with your Primary Care Physician within 1 week. You were given a prescription for Prednisone and a Z-leonardo that should be taken as prescribed Return to the ED immediately if you experience worsening shortness of breath, fever, chest pain or any other concerning symptoms. - Post Discharge Activity
[2019-02-12] MEDS ORDERED: methylPREDNISolone NA SUCC 125 MG/2 ML VIAL IVPUSH ONE (17:39)
[2019-02-12] MEDS ORDERED: MAGNESIUM SULF 50% (8.12 MEQ/2 ML-1 GM VIAL) IVPB ONE (17:39)
[2019-02-12] MEDS ORDERED: ALBUTEROL SO4 2.5/IPRATROPIUM 0.5 INH SOL 3 ML VIAL.NEB. NEB SCH (17:45)
[2019-02-12] MEDS ORDERED: ALBUTEROL SO4 2.5/IPRATROPIUM 0.5 INH SOL 3 ML VIAL.NEB. NEB ONE (17:50)
[2019-02-12] MEDS ORDERED: DEXAMETHASONE SOD PHOSPHATE 10 MG/1 ML VIAL ONE (17:51)
[2019-02-12 17:52] VITALS: BP 138/79; PULSE 97; BMI 24.0
[2019-02-12] MEDS ORDERED: methylPREDNISolone NA SUCC 125 MG/2 ML VIAL ONE (17:54)
[2019-02-12] MEDS ORDERED: MAGNESIUM 1GM/D5W - 1 GM/100 ML IVPB IVPB ONE (17:54)
[2019-02-12 18:11] VITALS: TEMP 98.1
--- NOTE | 2019-02-12 18:23 | PDOC ---
Attending Attestation - Resident Resident Name: SlickaramisdannJenae - ED Attending Attestation I have performed the following: I have examined & evaluated the patient, The case was reviewed & discussed with the resident, I agree w/resident's findings & plan - HPI HPI: 02/12/19 18:22 28 YOF with h/o Asthma, cigarette use presenting with cough and wheezing x 3 days, went to another ED last week, was dx'd with asthma exacerbation no sick contacts, no flu contacts. similar presentation on 01/14/19 with coughing/wheezing despite inhaler use. h/ o asthma, 2/2 smoking use, continues to use cigarettes.. 02/12/19 18:57 - Physicial Exam PE: 02/12/19 18:22 Agree with the resident's HPI and PE as documented in the electronic medical record. NAD, well appearing, EOMI, PERRL, nl conjunctiva, anicteric; neck supple. lungs b/l wheezing, RRR, abdomen soft nontender. no rebound, guarding. Back nontender. SONG x4, no focal neuro deficits. No peripheral edema. normal color for ethnicity, WWP. - Medical Decision Making 02/12/19 18:22 Vital Signs Temp Pulse Resp BP Pulse Ox 98.1 F 97 H 20 138/79 98 02/12/19 17:35 02/12/19 17:50 02/12/19 17:50 02/12/19 17:50 02/12/19 17:50 vitals wnl, normal sats, afebrile Interpreted by ED Physician: CXR (2 view): no acute abnormality: ?right hilar fullness/opacity, bones appear intact and structures normal alignment, cardiac silhouette within normal limits. no free air under diaphragm, no pneumothorax. treat as early PNA given sx, azithromycin abx x 5 days total, first dose here prednisone 50mg x 4 more days flu swab, neg asthma exacerbation, prednisone x 5 days, albuterol use Q4-6 hr for cough/ wheezing discharge stable condition, feels improved, speaking full sentences. smoking cessation advised, avoid triggers 02/12/19 18:56 02/12/19 19:25 02/13/19 10:32 Discharge - Discharge Information Problems reviewed: Yes Clinical Impression/Diagnosis: Asthma exacerbation, Pneumonia Condition: Stable Disposition: HOME - Admission No - Additional Discharge Information Prescriptions: Albuterol Sulfate Inhaler - [Ventolin HFA Inhaler -] 1 - 2 inh PO Q4H PRN #1 inhaler PRN Reason: wheezing, cough Azithromycin 250 mg PO DAILY #4 tablet Prednisone [Prednisone 50 MG TABLETS] 50 mg PO DAILY #4 tablet - Follow up/Referral Referrals: Isidro Davidson MD [Primary Care Provider] - - Patient Discharge Instructions Patient Printed Discharge Instructions: DI for Asthma -- Adult, DI for Pneumonia -- Adult Additional Instructions: You were seen in the ED for complaints of shortness of breath and asthma symptoms In the ED you were treated with breathing treatments, steroids and magnesium You had improvement of symptoms and there does not appear to be an acute need for immediate hospitalization. You are advised to follow up with your Primary Care Physician within 1 week. You were given a prescription for Prednisone and a Z-cristian that should be taken as prescribed, azithromycin for 4 more days starting tomorrow and prednisone steroids for 4 more days starting tomorrow. Return to the ED immediately if you experience worsening shortness of breath, fever, chest pain or any other concerning symptoms. - Post Discharge Activity Work/Back to School Note: Back to Work
[2019-02-12] MEDS ORDERED: predniSONE 20 MG TABLET (UD) PO ONE (18:48)
[2019-02-12] MEDS ORDERED: AZITHROMYCIN 500 MG TABLET PO ONE (19:25)
[2019-02-12] MEDS ORDERED: predniSONE 20 MG TABLET (UD) ONE (19:29)
[2019-02-12] MEDS ORDERED: AZITHROMYCIN 250 MG TABLET ONE (19:34)
== END 2019-02-12 20:14 | disposition home or self-care (01) ==
LOC: JER 17:33
PROC: 3E0F7GC Introduction of Other Therapeutic Substance into Respiratory Tract, Via Natural or Artificial Opening (ICD-10-PCS; principal; 2019-02-12)
PROC: 3E033GC Introduction of Other Therapeutic Substance into Peripheral Vein, Percutaneous Approach (ICD-10-PCS; 2019-02-12)
DX: J45.901 Unspecified asthma with (acute) exacerbation (principal)
CPT/HCPCS: 71045-TC-FY; 87804; 99281-25

== ENCOUNTER 2019-04-18 07:25 | Emergency (ER) | payer OTHER ==
[2019-04-18 07:37] VITALS: BP 126/79; PULSE 138; TEMP 98.1; BMI 25.4
[2019-04-18] MEDS ORDERED: ALBUTEROL SO4 2.5/IPRATROPIUM 0.5 INH SOL 3 ML VIAL.NEB. NEB ONE ×2 (07:51→07:53)
[2019-04-18] MEDS ORDERED: methylPREDNISolone NA SUCC 125 MG/2 ML VIAL IM ONE (07:51)
[2019-04-18] MEDS ORDERED: IPRATROPIUM BR 0.02% 0.5 MG/2.5 ML VIAL.NEB. NEB ONE (07:54)
--- NOTE | 2019-04-18 08:04 | PDOC ---
History of Present Illness - General Chief Complaint: Shortness of Breath Stated Complaint: S.O.B. Time Seen by Provider: 04/18/19 07:47 History Source: Patient Exam Limitations: Clinical Condition - History of Present Illness Initial Comments: 04/18/19 08:00 Patient with past medical history of asthma presented with complaint of 2 days history of persistent cough, nasal congestion, wheezing, chest tightness and intermittent shortness of breath. Patient reports symptoms improved with rescue inhaler but comes back again. Patient reported using rescue inhaler this morning for wheezing but still have persistent wheezing. Denies fever, chills, chest pain, palpitation, dizziness, nausea, vomiting or weakness. Denies any other symptoms Is this a multiple visit Asthma Patient?: No Timing/Duration: other (2 days) Past History - Past Medical History Allergies/Adverse Reactions: Allergies Allergy/AdvReac Type Severity Reaction Status Date / Time No Known Allergies Allergy Verified 04/18/19 07:30 Home Medications: Ambulatory Orders Unobtainable 04/18/19 Asthma: Yes COPD: No - Reproductive History (#): 3 Cervical CA: No Dysfunctional Uterine Bleeding: No Ectopic : No Endometrial CA: No Polycystic Ovaries: No Therapeutic (s) & number: Yes (2) Tubal Ligation: No - Immunization History Immunization Up to Date: Yes - Psycho Social/Smoking Cessation Hx Smoking Status: No Smoking History: Never smoked Have you smoked in the past 12 months: No Number of Cigarettes Smoked Daily: 1 Hx Alcohol Use: No Drug/Substance Use Hx: No Substance Use Type: None Hx Substance Use Treatment: No Review of Systems - Review of Systems Able to Perform ROS?: Yes Is the patient limited Norwegian proficient: No Constitutional: No: Chills, Fever, Malaise HEENTM: Yes: Symptoms Reported, See HPI, Nose Congestion. No: Eye Pain, Blurred Vision, Tearing, Recent change in vision, Double Vision, Cataracts, Ear Pain, Ocular Prothesis, Ear Discharge, Nose Pain, Tinnitus, Nose Bleeding, Hearing Loss, Throat Pain, Throat Swelling, Mouth Pain, Dental Problems, Difficulty Swallowing, Mouth Swelling, Other Respiratory: Yes: Symptoms reported, See HPI, Cough, Shortness of Breath, SOB at Rest, Wheezing. No: Orthopnea, SOB with Exertion, Stridor, Productive cough , Hemoptysis, Other Cardiac (ROS): Yes: Symptoms Reported, See HPI, Chest Tightness. No: Chest Pain , Edema, Irregular Heart Rate, Lightheadedness, Palpitations, Syncope, Other ABD/GI: No: Symptoms Reported, See HPI, Nausea, Vomiting Neurological: No: Symptoms reported All Other Systems: Reviewed and Negative *Physical Exam - Vital Signs Last Vital Signs Temp Pulse Resp BP Pulse Ox 98.1 F 138 H 26 H 126/79 94 L 04/18/19 07:30 04/18/19 07:30 04/18/19 07:30 04/18/19 07:30 04/18/19 07:30 - Physical Exam 04/18/19 08:03 GENERAL: Well developed, well nourished. Awake and alert in mild respiratory acute distress. HEENT: Normocephalic, atraumatic. PERRLA, EOMI. No conjunctival pallor. Sclera are non-icteric. Moist mucous membranes. Oropharynx is clear. NECK: Supple. Full ROM. CARDIOVASCULAR: Regular rate and rhythm. No murmurs, rubs, or gallops. Distal pulses are 2+ and symmetric. PULMONARY: Moderate diffuse expiratory wheeze with mild respiratory distress. No rales or rhonchi. No retractions or accessory muscle use. ABDOMINAL: Soft. Non-tender. Non-distended. No rebound or guarding. No organomegaly. Normoactive bowel sounds. MUSCULOSKELETAL Normal range of motion at all joints. SKIN: Warm and dry. Normal capillary refill. No rashes. No cyanosis. NEUROLOGICAL: Alert, awake, appropriate. Gait is normal without ataxia. PSYCHIATRIC: Cooperative. Good eye contact. Appropriate mood General Appearance: Yes: Nourished, Appropriately Dressed, Mild Distress ED Treatment Course - RADIOLOGY Radiology Studies Ordered: Category Date Time Status CHEST PA & LAT [RAD] Stat Radiology 04/18/19 07:51 Ordered Medical Decision Making - Medical Decision Making 04/18/19 08:01 Patient with past medical history of asthma presented with complaint of 2 days history of persistent cough, nasal congestion, wheezing, chest tightness and intermittent shortness of breath. Patient reports symptoms improved with rescue inhaler but comes back again. Patient reported using rescue inhaler this morning for wheezing but still have persistent wheezing. Denies fever, chills, chest pain, palpitation, dizziness, nausea, vomiting or weakness. Denies any other symptoms Exam significant for diffuse mild respiratory wheeze with mild acute respiratory distress. No retraction or accessory muscle use. Patient afebrile. Symptoms likely URI with asthma exacerbation. DuoNeb ordered for wheezing and Solu-Medrol 125 mg IM ordered for bronchospasm. Chest x-ray ordered to rule out pneumonia 04/18/19 09:00 Patient with significant improvement in wheezing and shortness of breath post DuoNeb and Solu-Medrol treatment and report feeling better. Patient pending chest x-ray 04/18/19 09:19 Chest x-ray shows no acute infiltrate or pathology. Patient stable for discharge on Tessalon Perles as needed for cough and Medrol Leonardo for congestion and Singulair for antihistamine with advised to increase fluid intake with pulmonology follow-up Discharge - Discharge Information Problems reviewed: Yes Clinical Impression/Diagnosis: URI with cough and congestion Asthma exacerbation Qualifiers: Asthma severity: mild Asthma persistence: intermittent Qualified Code(s): J45.21 - Mild intermittent asthma with (acute) exacerbation Condition: Improved Disposition: HOME - Admission No - Follow up/Referral Referrals: Isidro Davidson MD [Primary Care Provider] - Rosales Sanchez MD [Staff Physician] - - Patient Discharge Instructions Patient Printed Discharge Instructions: DI for Asthma -- Adult, DI for Viral Upper Respiratory Infection -- Adult Additional Instructions: Take prescribed medication as prescribed for symptoms. Increase fluid intake. Continue with home nebulizer medication as needed for asthma. Follow-up with referred child life therapist if asthma symptoms persist - Post Discharge Activity
[2019-04-18] MEDS ORDERED: methylPREDNISolone NA SUCC 125 MG/2 ML VIAL ONE (08:19)
== END 2019-04-18 09:17 | disposition home or self-care (01) ==
LOC: JER 07:25
PROC: 3E0F7GC Introduction of Other Therapeutic Substance into Respiratory Tract, Via Natural or Artificial Opening (ICD-10-PCS; principal; 2019-04-18)
PROC: 3E0233Z Introduction of Anti-inflammatory into Muscle, Percutaneous Approach (ICD-10-PCS; 2019-04-18)
DX: J45.21 Mild intermittent asthma with (acute) exacerbation (principal); J06.9 Acute upper respiratory infection, unspecified
CPT/HCPCS: 71046-TC-FY; 94640; 96372; 99283-25

== ENCOUNTER 2019-05-12 09:44 | Emergency (ER) | payer OTHER ==
[2019-05-12] MEDS: ALBUTEROL SO4 2.5/IPRATROPIUM 0.5 INH SOL 3 ML VIAL.NEB. NEB SCH ×4 (09:45→10:30)
[2019-05-12 09:50] VITALS: BMI 25.7
[2019-05-12] MEDS ORDERED: ALBUTEROL SO4 2.5/IPRATROPIUM 0.5 INH SOL 3 ML VIAL.NEB. NEB ONE (09:51)
[2019-05-12] MEDS ORDERED: methylPREDNISolone NA SUCC 125 MG/2 ML VIAL ONE (09:54)
[2019-05-12] MEDS ORDERED: methylPREDNISolone NA SUCC 125 MG/2 ML VIAL IVPB ONE (09:59)
[2019-05-12] MEDS ORDERED: MAGNESIUM 1GM/D5W - 1 GM/100 ML IVPB IVPB ONE (09:59)
[2019-05-12] MEDS ORDERED: SODIUM CHLORIDE 1,000 ML IV STA (09:59)
--- NOTE | 2019-05-12 10:06 | PDOC ---
History of Present Illness - General Chief Complaint: Asthma Stated Complaint: ASTHMA Time Seen by Provider: 05/12/19 10:01 - History of Present Illness Initial Comments: 05/12/19 10:01 Ms. Reyes is a 29 yo female w/ pmh of asthma (mild/moderate severity, manageable w/ breathing treatments and rescue inhaler only, never been hospitalized/intubated for it) who presents for evaluation of 2 day history of asthma exacerbation. Patient reports she has been using breathing treatments and rescue inhaler at home unsuccessfully, prompting her presentation. Denies any symptoms besides asthma exacerbation, denies recent travel, denies sick contacts, denies fever or other symptoms. The patient denies chest pain, headache and dizziness. Denies fever, chills, nausea, vomit, diarrhea and constipation. Denies dysuria, frequency, urgency and hematuria. Past History - Past Medical History Allergies/Adverse Reactions: Allergies Allergy/AdvReac Type Severity Reaction Status Date / Time No Known Allergies Allergy Verified 05/12/19 09:50 Home Medications: Ambulatory Orders Albuterol Sulfate Inhaler - [Ventolin HFA Inhaler -] 2 inh PO Q4H PRN #1 inh 05/12/19 Azithromycin [Zithromax 250mg Tablets -] 250 mg PO UTDICT #6 tab 05/12/19 predniSONE [Deltasone -] 40 mg PO DAILY #8 tablet 05/12/19 Asthma: Yes COPD: No - Reproductive History (#): 3 Cervical CA: No Dysfunctional Uterine Bleeding: No Ectopic : No Endometrial CA: No Polycystic Ovaries: No Therapeutic (s) & number: Yes (2) Tubal Ligation: No - Immunization History Immunization Up to Date: Yes - Psycho Social/Smoking Cessation Hx Smoking Status: No Smoking History: Never smoked Have you smoked in the past 12 months: No Number of Cigarettes Smoked Daily: 1 Hx Alcohol Use: No Drug/Substance Use Hx: No Substance Use Type: None Hx Substance Use Treatment: No Review of Systems - Review of Systems Comments:: 05/12/19 10:03 GENERAL/CONSTITUTIONAL: No fever or chills. No weakness. HEAD, EYES, EARS, NOSE AND THROAT: No change in vision. No ear pain or discharge. No sore throat. CARDIOVASCULAR: +SOB as described. No chest pain RESPIRATORY: No cough, wheezing, or hemoptysis. GASTROINTESTINAL: No nausea, vomiting, diarrhea or constipation. GENITOURINARY: No dysuria, frequency, or change in urination. MUSCULOSKELETAL: No joint or muscle swelling or pain. No neck or back pain. SKIN: No rash NEUROLOGIC: No headache, vertigo, loss of consciousness, or change in strength/sensation. ENDOCRINE: No increased thirst. No abnormal weight change HEMATOLOGIC/LYMPHATIC: No anemia, easy bleeding, or history of blood clots. ALLERGIC/IMMUNOLOGIC: No hives or skin allergy. *Physical Exam - Vital Signs Last Vital Signs Temp Pulse Resp BP Pulse Ox 97.4 F L 125 H 30 H 116/75 90 L 05/12/19 09:48 05/12/19 09:48 05/12/19 09:48 05/12/19 09:48 05/12/19 09:48 - Physical Exam 05/12/19 10:04 GENERAL: +Patient acutely short of breath. Awake, alert, and fully oriented HEAD: No signs of trauma, normocephalic, atraumatic EYES: PERRLA, EOMI, sclera anicteric, conjunctiva clear ENT: Auricles normal inspection, hearing grossly normal, nares patent, oropharynx clear without exudates. Moist mucosa NECK: Normal ROM, supple, no lymphadenopathy, JVD, or masses LUNGS: +Patient diffusely wheezy upon exam. HEART: Regular rate and rhythm, normal S1 and S2, no murmurs, rubs or gallops, peripheral pulses normal and equal bilaterally. ABDOMEN: Soft, nontender, normoactive bowel sounds. No guarding, no rebound. No masses EXTREMITIES: Normal inspection, Normal range of motion, no edema. No clubbing or cyanosis. NEUROLOGICAL: Cranial nerves II through XII grossly intact. Normal speech, normal gait, no focal sensorimotor deficits SKIN: Warm, Dry, normal turgor, no rashes or lesions noted. ED Treatment Course - LABORATORY CBC & Chemistry Diagram: 05/12/19 09:41 05/12/19 09:41 Medical Decision Making - Medical Decision Making 05/12/19 10:05 Ms. Reyes is a 29 yo female w/ pmh as described who presents for evaluation of symptoms c/w asthma exacerbation. Patient given breathing treatments, steroids, and Mg for relief. Workup pending. 05/12/19 11:02 Patient exam improved upon repeat evaluation. Will continue to monitor. 05/12/19 14:46 Pulmonary exam much improved. Patient pulse improved to 96. Prophylactic ABX sen t to patient's pharmacy. Discharging to home. Discharge - Discharge Information Problems reviewed: Yes Clinical Impression/Diagnosis: Asthma exacerbation attacks Qualifiers: Asthma severity: moderate Asthma persistence: unspecified Qualified Code(s): J45.901 - Unspecified asthma with (acute) exacerbation Condition: Improved Disposition: HOME - Additional Discharge Information Prescriptions: predniSONE [Deltasone -] 40 mg PO DAILY #8 tablet Albuterol Sulfate Inhaler - [Ventolin HFA Inhaler -] 2 inh PO Q4H PRN #1 inh PRN Reason: wheezing, cough Azithromycin [Zithromax 250mg Tablets -] 250 mg PO UTDICT #6 tab - Follow up/Referral Referrals: Sandra Davidson [Primary Care Provider] - - Patient Discharge Instructions Patient Printed Discharge Instructions: DI for Asthma -- Adult, How to Quit Smoking Additional Instructions: You were evaluated today in the ER for your symptoms. We gave steroids and breathing treatments and your symptoms improved. We also sent steroids and antibiotics to your pharmacy. Please take all medications as proscribed. Return to ER if any difficulty breathing, fever, chills, or other concerning symptoms. - Post Discharge Activity
[2019-05-12 10:12] LABS: BASO % 0.6 % (0-2.0); EOS % 11.5 % (0-4.5); HEMATOCRIT 40.4 % (32.4-45.2); HEMOGLOBIN 13.7 GM/dL (10.7-15.3); MCH 31.9 pg (25.7-33.7); MCHC 33.8 g/dl (32.0-36.0); MEAN CELL VOLUME 94.4 fl (80-96); MEAN PLT VOLUME 8.8 fl (7.5-11.1); MONO % 8.3 % (3.8-10.2); NEUT % 52.6 % (42.8-82.8); PLATELET COUNT 293 K/MM3 (134-434); RBC 4.27 M/mm3 (3.60-5.2); RDW 14.2 % (11.6-15.6); WHITE BLOOD COUNT 9.9 K/mm3 (4.0-10.0)
--- NOTE | 2019-05-12 10:21 | PDOC ---
Documentation entered by Patel Hernandez SCRIBE, acting as scribe for Mi Randall MD. Mi Randall MD: This documentation has been prepared by the Mary haile Angel, SCRIBE, under my direction and personally reviewed by me in its entirety. I confirm that the documentation accurately reflects all work, treatment, procedures, and medical decision making performed by me. Attending Attestation - Resident Resident Name: Quan Dangelo - ED Attending Attestation I have performed the following: I have examined & evaluated the patient, The case was reviewed & discussed with the resident, I agree w/resident's findings & plan - HPI HPI: 05/12/19 10:21 29 yo female w/ pmh of asthma (mild/moderate severity, manageable w/ breathing treatments and rescue inhaler only, never been hospitalized/intubated for it) who presents for evaluation of 2 day history of asthma exacerbation. Patient reports she has been using breathing treatments and rescue inhaler at home unsuccessfully, prompting her presentation. Denies any symptoms besides asthma exacerbation, denies recent travel, denies sick contacts, denies fever or other symptoms. 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 +current smoker and cannibis use last used cigs 2 days ago 05/12/19 10:22 - Physicial Exam PE: 05/12/19 10:19 Agree with the resident's HPI and PE as documented in the electronic medical record. Moderate respiratory distress, difficulty speaking full sentences.EOMI, PERRL, nl conjunctiva, anicteric; neck supple. lungs With bilateral wheezing and tachycardia abdomen soft nontender. no rebound, guarding. Back nontender. SONG x4, no focal neuro deficits. No peripheral edema. normal color for ethnicity, WWP. no calf tenderness - Medical Decision Making 05/12/19 10:20 Vital Signs Temp Pulse Resp BP Pulse Ox 97.4 F L 125 H 30 H 116/75 90 L 05/12/19 09:48 05/12/19 09:48 05/12/19 09:48 05/12/19 09:48 05/12/19 09:48 Vital signs reviewed, afebrile. However patient is tachypneic and hypoxic down to 90% on room air. Tachycardic likely from 6 nebulizer treatments NURSING PROGRAM COORDINATOR. Immediate duo nebs placed on patient with improvement in saturations.. Differential diagnosis includes asthma exacerbation, pulmonary edema, URI, viral syndrome, influenza, pneumonia, anemia, electrolyte/metabolic derangements Patient is given Solu-Medrol, duo nebs x3, magnesium and reassess. Smoking cessation is advised patient has likely underlying URI as well triggering her asthma exacerbation. no bipap indicated at this time on monitor. 05/12/19 11:54 flu and rsv neg labs and lytes wnl, reassuring Interpreted by ED Physician: CXR (2 view): no acute abnormality: no infiltrates, bones appear intact and structures normal alignment, cardiac silhouette within normal limits. no free air under diaphragm, no pneumothorax. However compared to prior study from March 2019 there is a density seen just inferior to the left hilum and in the part of the left heart, could be focal atelectasis versus prominent vessels. Patient does not have any fevers or symptoms to suggest infection or infiltrate. Patient has previously had density by the left heart border which is no longer seen. will treat this as possible atypical pna, given risk factors smoking and asthma, treat as infection z cristian x 5 days. follow up with primary with these lung density in the setting of asthma and smoking. albuterol inhaler use prn 4-6 hr for wheezing steroids x 4 more days rpt VS improved, HR down in the 90s. likely initially tachy from WOB and mul tiple albuterol meds. Pt to be discharged in stable condition. Patient made aware of clinical impression, treatment recommendations and disposition plan, return precautions discussed (including but not limited to new or persistent/worsening symptoms, pain, fevers, or signs of infection, chest pain, respiratory distress, inability to tolerate oral intake, dehydration, syncope, or neurologic changes). Follow up with PMD as recommended, follow up information provided, take medications as instructed for duration of time. continue with supportive care, avoid triggers and precipitants. All questions answered to patient's satisfaction and expressed understanding and comfort with this. At the time of discharge, the patient is alert, clinically improved, tolerating po and verbalizes understanding of instructions, satisfied with the care received and felt comfortable with the plan. Patient does not suffer from an acute life-threatening medical condition at this time and is safe for outpatient follow-up. 05/12/19 14:48 Discharge - Discharge Information Problems reviewed: Yes Clinical Impression/Diagnosis: Asthma exacerbation attacks Qualifiers: Asthma severity: moderate Asthma persistence: unspecified Qualified Code(s): J45.901 - Unspecified asthma with (acute) exacerbation Condition: Improved - Admission No - Additional Discharge Information Prescriptions: predniSONE [Deltasone -] 40 mg PO DAILY #8 tablet Albuterol Sulfate Inhaler - [Ventolin HFA Inhaler -] 2 inh PO Q4H PRN #1 inh PRN Reason: wheezing, cough Azithromycin [Zithromax 250mg Tablets -] 250 mg PO UTDICT #6 tab - Follow up/Referral Referrals: Sandra Davidson [Primary Care Provider] - - Patient Discharge Instructions Patient Printed Discharge Instructions: DI for Asthma -- Adult, How to Quit Smoking Additional Instructions: 1) Please follow-up with your primary care doctor in the next 1-2 days. Please call tomorrow for for any urgent issues. 2) You were given a copy of the tests performed today. Please bring the results with you and review them with your primary care doctor. Your laboratory / imaging results were provided. you are being treated for possible atypical pneumonia with z cristian x 5 days. you have density on your chest x ray, needs to be followed up. 3) If you have any worsening of symptoms or any other concerns please return to the ED immediately. Return if worsening symptoms including fevers, headache, vomiting, visual or hearing disturbances, abdominal pain, chest pain, shortness of breath, syncope, dehydration, inability to take things by mouth/vomiting, altered mental status, or worsening concerning symptoms. 4) Please continue taking your home medications as directed. your medications on discharge include Zpak . side effects may include upset stomach, abdominal pain, vomiting, or diarrhea. do not drink alcohol with your medications. also steroids x 4 more days as well as albuterol inhaler every 4-6 hours for cough/wheeze smoking cessation advised Stay well hydrated and rest adequately. Make an appointment. If you cannot follow-up with your primary care doctor please return to the ED - Post Discharge Activity Vital Signs - Vital Signs Vital signs refused: No Pulse Rate: 96 Respiratory Rate: 18 BP Location: Left Arm
[2019-05-12 10:39] LABS: ALBUMIN 3.5 g/dl (3.4-5.0); BILIRUBIN,TOTAL 0.5 mg/dL (0.2-1); BLOOD UREA NITROGEN 9.2 mg/dL (7-18); CALCIUM 8.6 mg/dL (8.5-10.1); CREATININE 0.8 mg/dL (0.55-1.3); POTASSIUM 3.7 mmol/L (3.5-5.1); TOT PROT 7.2 g/dl (6.4-8.2)
[2019-05-12] MEDS ORDERED: predniSONE 20 MG TABLET (UD) PO ONE (11:06)
[2019-05-12] MEDS ORDERED: OSELTAMIVIR PHOSPHATE 75 MG CAPSULE ONE (11:18)
[2019-05-12] MEDS ORDERED: ACETAMINOPHEN 1000 MG/100 ML VIAL (NON FORMULARY) IVPB ONE (12:09)
[2019-05-12] MEDS ORDERED: ACETAMINOPHEN INJECTION 100 ML IVPB ONE (12:26)
[2019-05-12 14:48] VITALS: PULSE 96
[2019-05-12 14:56] VITALS: BP 120/80; TEMP 98
[2019-05-12] MEDS ORDERED: predniSONE 20 MG TABLET (UD) ONE (14:58)
[2019-05-12] MEDS ORDERED: IBUPROFEN 600 MG TABLET (FP) PO ONE (14:58)
== END 2019-05-12 15:09 | disposition home or self-care (01) ==
LOC: JER 09:44
PROC: 3E0F7GC Introduction of Other Therapeutic Substance into Respiratory Tract, Via Natural or Artificial Opening (ICD-10-PCS; principal; 2019-05-12)
PROC: 3E0337Z Introduction of Electrolytic and Water Balance Substance into Peripheral Vein, Percutaneous Approach (ICD-10-PCS; 2019-05-12)
PROC: 3E033GC Introduction of Other Therapeutic Substance into Peripheral Vein, Percutaneous Approach (ICD-10-PCS; 2019-05-12)
PROC: 3E033NZ Introduction of Analgesics, Hypnotics, Sedatives into Peripheral Vein, Percutaneous Approach (ICD-10-PCS; 2019-05-12)
PROC: 3E0333Z Introduction of Anti-inflammatory into Peripheral Vein, Percutaneous Approach (ICD-10-PCS; 2019-05-12)
DX: J45.901 Unspecified asthma with (acute) exacerbation (principal); J18.9 Pneumonia, unspecified organism; F17.210 Nicotine dependence, cigarettes, uncomplicated
CPT/HCPCS: 36415; 71045-TC-FY; 80053; 84703; 85025; 87804; 87807; 94640; 96361; 96365; 96375; 99285-25; J0131; J7030

== ENCOUNTER 2019-05-24 21:13 | Emergency (ER) | payer OTHER ==
[2019-05-24] MEDS ORDERED: MAGNESIUM SULF 50% (8.12 MEQ/2 ML-1 GM VIAL) ONE (21:21)
[2019-05-24] MEDS ORDERED: methylPREDNISolone NA SUCC 125 MG/2 ML VIAL ONE (21:21)
[2019-05-24] MEDS ORDERED: ALBUTEROL SO4 HFA INHALER IH ONE (21:26)
[2019-05-24] MEDS ORDERED: TERBUTALINE SULFATE 1 MG/1 ML VIAL SQ ONE ×3 (22:12→23:35)
[2019-05-24 22:15] VITALS: BP 130/78; PULSE 105; TEMP 98.8; BMI 19.7
[2019-05-25] MEDS ORDERED: TERBUTALINE SULFATE 1 MG/1 ML VIAL SQ ONE (00:13)
== END 2019-05-25 01:15 | disposition home or self-care (01) ==
LOC: JER 21:13
PROC: 3E0F7GC Introduction of Other Therapeutic Substance into Respiratory Tract, Via Natural or Artificial Opening (ICD-10-PCS; principal; 2019-05-24)
PROC: 3E023GC Introduction of Other Therapeutic Substance into Muscle, Percutaneous Approach (ICD-10-PCS; principal; 2019-05-24)
DX: J45.901 Unspecified asthma with (acute) exacerbation (principal)
CPT/HCPCS: 71046-TC-FY; 99284-25

== ENCOUNTER 2019-06-19 14:49 | Emergency (ER) | payer OTHER ==
[2019-06-19 14:53] VITALS: BMI 27.8
[2019-06-19] MEDS ORDERED: SODIUM CHLORIDE 1,000 ML IV STA (15:14)
[2019-06-19] MEDS ORDERED: MAGNESIUM SULF 50% (8.12 MEQ/2 ML-1 GM VIAL) IVPB ONE (15:14)
[2019-06-19] MEDS ORDERED: methylPREDNISolone NA SUCC 125 MG/2 ML VIAL IVPB ONE (15:14)
[2019-06-19] MEDS ORDERED: ALBUTEROL SO4 2.5/IPRATROPIUM 0.5 INH SOL 3 ML VIAL.NEB. NEB ONE ×2 (15:16→15:37)
[2019-06-19] MEDS ORDERED: MAGNESIUM SULF 50% (8.12 MEQ/2 ML-1 GM VIAL) ONE (15:16)
[2019-06-19] MEDS ORDERED: methylPREDNISolone NA SUCC 125 MG/2 ML VIAL ONE (15:17)
[2019-06-19 16:28] VITALS: BP 120/73; PULSE 100; TEMP 98.3
[2019-06-19 16:51] LABS: ALBUMIN 3.5 g/dl (3.4-5.0); ALK PHOS 83 U/L (45-117); ANION GAP 6 MMOL/L (8-16); BILIRUBIN,TOTAL 0.3 mg/dL (0.2-1); BLOOD UREA NITROGEN 12.7 mg/dL (7-18); CALCIUM 8.6 mg/dL (8.5-10.1); CHLORIDE 108 mmol/L (98-107); CO2 27 mmol/L (21-32); CREATININE 1.2 mg/dL (0.55-1.3); GLUCOSE,RANDOM 119 mg/dL (74-106); POTASSIUM 3.8 mmol/L (3.5-5.1); SGOT/AST 11 U/L (15-37); SGPT/ALT 19 U/L (13-61); SODIUM 141 mmol/L (136-145); TOT PROT 6.7 g/dl (6.4-8.2)
[2019-06-19] MEDS ORDERED: ALBUTEROL SO4 0.083% IH SOL 2.5 MG/3 ML VIAL.NEB. NEB ONE ×2 (16:51→16:53)
[2019-06-19 17:16] LABS: HIV INTERPRETATION NEGATIVE (NEGATIVE)
== END 2019-06-19 18:18 | disposition home or self-care (01) ==
LOC: JER 14:49 → SUPCPDRO 14:49 → JER 18:18
PROC: 3E033GC Introduction of Other Therapeutic Substance into Peripheral Vein, Percutaneous Approach (ICD-10-PCS; principal; 2019-06-19)
PROC: 3E0F7GC Introduction of Other Therapeutic Substance into Respiratory Tract, Via Natural or Artificial Opening (ICD-10-PCS; principal; 2019-06-19)
PROC: 3E0337Z Introduction of Electrolytic and Water Balance Substance into Peripheral Vein, Percutaneous Approach (ICD-10-PCS; principal; 2019-06-19)
DX: J45.41 Moderate persistent asthma with (acute) exacerbation (principal)
CPT/HCPCS: 36415; 71045-TC-FY; 80053; 84702; 87389; 94640; 96361; 96374; 96375; 99284-25

== ENCOUNTER 2019-08-25 06:21 | Inpatient (IN) | payer OTHER ==
[2019-08-25] MEDS ORDERED: ALBUTEROL SO4 HFA INHALER IH ONE ×2 (06:23→06:25)
[2019-08-25] MEDS ORDERED: methylPREDNISolone NA SUCC 125 MG/2 ML VIAL IVPUSH ONE (06:23)
[2019-08-25] MEDS ORDERED: methylPREDNISolone NA SUCC 125 MG/2 ML VIAL ONE (06:26)
[2019-08-25] MEDS ORDERED: MAGNESIUM 1GM/D5W - 2 GM/200 ML IVPB IVPB ONE (06:26)
--- NOTE | 2019-08-25 06:31 | PDOC ---
Rapid Medical Evaluation Chief Complaint: Shortness of Breath Time Seen by Provider: 08/25/19 06:23 Medical Evaluation: Allergies Allergy/AdvReac Type Severity Reaction Status Date / Time No Known Allergies Allergy Verified 07/27/19 15:32 08/25/19 06:28 Patient is a 29F with history of asthma here today with shortness of breath that onset this morning. Patient got 1.5 nebs of albuterol in the field by EMS, no steroids. Vitals were stable in field. On exam, patient is coughing, tachycardic, tachypneic, coughing, with wheezes bilaterally. O2sat stable, speaking 5+ word sentences CBC, CMP, Preg, CXR, Solumedrol, Magnesium, Inhaler ordered. Case d/w Dr Faustin. Discharge Disposition - Diagnosis Asthma exacerbation Qualifiers: Asthma severity: moderate Asthma persistence: persistent Qualified Code(s): J45.41 - Moderate persistent asthma with (acute) exacerbation - Discharge Dispostion Condition at time of disposition: Stable - Referrals - Patient Instructions - Post Discharge Activity
[2019-08-25] MEDS ORDERED: RACEPINEPHRINE IH SOL 2.25% 11.25 MG/0.5 ML VIAL IH ONE (06:36)
[2019-08-25] MEDS ORDERED: IPRATROPIUM BR 0.02% 0.5 MG/2.5 ML VIAL.NEB. NEB ONE (06:37)
[2019-08-25] MEDS ORDERED: RACEPINEPHRINE IH SOL 2.25% 11.25 MG/0.5 ML VIAL NEB ONE (06:37)
[2019-08-25] MEDS ORDERED: ALBUTEROL SO4 2.5/IPRATROPIUM 0.5 INH SOL 3 ML VIAL.NEB. NEB ONE ×2 (06:46→07:20)
[2019-08-25] MEDS ORDERED: EPINEPHrine/PF 1 MG/1 ML (1:1,000) AMPULE ONE (06:58)
[2019-08-25 07:15] LABS: BLOOD UREA NITROGEN 9.6 mg/dL (7-18); POTASSIUM 4.4 mmol/L (3.5-5.1); TOT PROT 7.6 g/dl (6.4-8.2)
[2019-08-25] MEDS ORDERED: ONDANSETRON 4 MG/2 ML VIAL IVPUSH ONE (07:16)
[2019-08-25 07:17] LABS: CALCIUM 8.7 mg/dL (8.5-10.1)
[2019-08-25] MEDS ORDERED: EPINEPHrine 1:1,000 0.3 MG/0.3 ML SYR IM ONE (07:19)
[2019-08-25 07:20] LABS: HEMATOCRIT 42.6 % (32.4-45.2); MCH 30.7 pg (25.7-33.7); MCHC 32.9 g/dl (32.0-36.0); MEAN CELL VOLUME 93.4 fl (80-96); MEAN PLT VOLUME 8.4 fl (7.5-11.1); PLATELET COUNT 364 K/MM3 (134-434); RBC 4.56 M/mm3 (3.60-5.2); RDW 13.5 % (11.6-15.6); WHITE BLOOD COUNT 12.8 K/mm3 (4.0-10.0)
--- NOTE | 2019-08-25 07:20 | PDOC ---
Attending Attestation - Resident Resident Name: Abbe Thomson - ED Attending Attestation I have performed the following: I have examined & evaluated the patient, The case was reviewed & discussed with the resident, I agree w/resident's findings & plan, Exceptions are as noted - HPI HPI: 08/25/19 07:21 29y F hx of asthma (no intubations, no hospitalizations) presents with sob. Pt notes she has had incerased coughing the past few days, making it difficult to breath and sleep. She came in today prior to my arrival tachypenic, speaking approx 4 word segments. She was diffusely wheezy, was given albuterol by EMS, given solumedrol, magnesium, racemic epinephrine, subq epinephrine. over the past 40-50 minutes, the pt clinical status seems to have improved, with improvement of her tachypnea and lengthening of her segments. she notes she is coughing sputum and states she feels very congested. She denies any f/c, cp, leg swelling, hemoptysis. Exam: GENERAL: The patient is awake, alert, and fully oriented, Nontoxic - in no acute distress. HEAD: Normocephalic, atraumatic. EYES: extraocular movements intact, sclera anicteric, conjunctiva clear. ENT: Normal voice, Moist mucous membranes. NECK: Normal range of motion, supple LUNGS:tachypneic, wheezing bilaterally, speaking approx 4 word sentences, +accessory muscle use HEART: Regular rate and rhythm, normal S1 and S2 without murmur, rub or gallop. ABDOMEN: Soft, nontender, No guarding, no rebound. No CVA tendernesss EXTREMITIES: Normal range of motion, no edema. NEUROLOGICAL: No facial assymetry, Normal speech, PSYCH: Normal mood, normal affect. SKIN: Warm, Dry, normal turgor, severe asthma exacerbation - anticipate admission. will continue care monitoring - Physicial Exam PE: 08/25/19 08:09 see above - Critical Care Time Total Critical Care Time: 45 Critical Care Statement: The care of this patient involved high complexity decision making to prevent further life threatening deterioration of the patient's condition and/or to evaluate & treat vital organ system(s) failure or risk of failure. - Medical Decision Making 08/25/19 08:08 Patient appears clinically improved her respiratory rate is 24, heart rate of 104. Patient is sleepy however she states she has not slept much for the last several days due to her coughing. 08/25/19 09:45 pt remains donig well. admitted for further management will continue monitoring. Discharge - Discharge Information Problems reviewed: Yes Clinical Impression/Diagnosis: Asthma exacerbation Qualifiers: Asthma severity: moderate Asthma persistence: persistent Qualified Code(s): J45.41 - Moderate persistent asthma with (acute) exacerbation Condition: Guarded - Follow up/Referral - Patient Discharge Instructions - Post Discharge Activity
--- NOTE | 2019-08-25 07:30 | PDOC ---
History of Present Illness - General Chief Complaint: Shortness of Breath Stated Complaint: S.O.B. Time Seen by Provider: 08/25/19 06:23 History Source: Patient Exam Limitations: No Limitations - History of Present Illness Initial Comments: 08/25/19 07:25 29 yo F with a hx of asthma presents to the emergency with shortness of breath that occurred this morning. The patient received 1.5 nebulizing treatments in the field by EMS and the patient used multiple rounds of albuterol at home. The patient does not take an inhaled steroid inhaler at home. The patient uses marijuana regularly and used it recently. Denies the following: fevers, chills, chest pain, headaches, nausea, abdominal pain, dysuria, hematuria, diarrhea, and leg pain/swelling. Had 1x vomiting episode in the department. Past History - Medical History Allergies/Adverse Reactions: Allergies Allergy/AdvReac Type Severity Reaction Status Date / Time No Known Allergies Allergy Unverified 01/18/19 07:04 Home Medications: Ambulatory Orders Albuterol 2.5/Ipratropium 0.5 [Duoneb -] 1 neb IH QID PRN #1 vial.neb. 01/18/19 Benzonatate [Tessalon Pearls -] 100 mg PO Q8H PRN #20 capsule 01/18/19 Fluticasone Propionate [Flovent Hfa] 44 mcg IH BID #1 inh 01/18/19 Montelukast Na [Singulair -] 10 mg PO DAILY #10 tablet 01/18/19 Nebulizer and Compressor [Portable Nebulizer System] 1 each MC Q6H PRN #1 each 01/18/19 Albuterol Sulfate Inhaler - [Ventolin HFA Inhaler -] 2 inh PO Q4H PRN #1 inh 05/12/19 Loratadine [Claritin -] 10 mg PO DAILY #30 tablet 06/19/19 Fluticasone/Vilanterol [Breo Ellipta 100-25 Mcg INH] 1 each IH DAILY #1 aer.pow.[email or web address] 08/26/19 predniSONE [Deltasone -] See Taper PO ASDIR #17 tab 08/26/19 Asthma: Yes COPD: No - Reproductive History (#): 3 Cervical CA: No Dysfunctional Uterine Bleeding: No Ectopic : No Endometrial CA: No Polycystic Ovaries: No Therapeutic (s) & number: Yes (2) Tubal Ligation: No - Immunization History Immunization Up to Date: Yes - Psycho-Social/Smoking History Smoking Status: No Smoking History: Unknown if ever smoked Have you smoked in the past 12 months: No Number of Cigarettes Smoked Daily: 1 If you are a former smoker, when did you quit?: 1MONTHAGO Information on smoking cessation initiated: No - Substance Abuse Hx (Audit-C & DAST Scrn) How often the patient has a drink containing alcohol: Never Score: In Men: 4 or > Positive; In Women: 3 or > Positive: 0 Screen Result (Pos requires Nsg. Audit-10AR): Negative In the last yr the pt used illegal drug/Rx for NonMed reason: No Score: Yes response is considered Positive: 0 Screen Result (Positive result requires Nsg. DAST-10): Negative Review of Systems - Review of Systems Able to Perform ROS?: Yes Is the patient limited Citizen [place] proficient: No Constitutional: No: Chills, Diaphoresis, Fever, Weakness HEENTM: No: Eye Pain, Ear Pain, Nose Pain, Throat Pain Respiratory: Yes: Cough, Shortness of Breath, SOB with Exertion, SOB at Rest, Wheezing Cardiac (ROS): No: Chest Pain, Lightheadedness ABD/GI: Yes: Nausea. No: Constipated, Diarrhea, Rectal Bleeding, Vomiting, Tarry Stools : No: Dysuria, Hematuria Musculoskeletal: No: Back Pain, Joint Pain, Neck Pain Integumentary: No: Rash Neurological: No: Headache, Ataxia Psychiatric: No: Change in Appetite Endocrine: No: Unexplained Weight Loss Hematologic/Lymphatic: No: Anemia *Physical Exam - Vital Signs Last Vital Signs Temp Pulse Resp BP Pulse Ox 98.2 F 124 H 28 H 154/100 98 08/25/19 06:28 08/25/19 06:28 08/25/19 06:28 08/25/19 06:28 08/25/19 06:28 - Physical Exam General Appearance: Yes: Nourished, Appropriately Dressed. No: Apparent Distress, Intoxicated HEENT: positive: EOMI, JOHN, Normal Voice, Symmetrical, Pharynx Normal, Hearing Grossly Normal. negative: Pale Conjunctivae, Scleral Icterus (R), Scleral Icterus (L), Muffled/Hoarse voice, Pharyngeal Erythema, Tonsillar Exudate, Tonsillar Erythema, Nasal Congestion, Rhinorrhea, Sinus Tenderness, Excessive drooling Neck: positive: Trachea midline, Supple. negative: Tender, Lymphadenopathy (R), Lymphadenopathy (L) Respiratory/Chest: positive: Respiratory Distress, Accessory Muscle Use, Decreased Breath Sounds, Wheezing. negative: Chest Tender Cardiovascular: positive: Regular Rhythm, S1, S2, Tachycardia. negative: Systolic Murmur Gastrointestinal/Abdominal: positive: Normal Bowel Sounds, Flat, Soft. negative: Tender, Distended, Guarding, Rebound Lymphatic: negative: Adenopathy Musculoskeletal: positive: Normal Inspection. negative: CVA Tenderness, Vertebral Tenderness Extremity: positive: Normal Capillary Refill, Normal Inspection, Normal Range of Motion. negative: Tender, Swelling, Calf Tenderness Integumentary: positive: Normal Color, Dry, Warm Neurologic: positive: time clerk II-XII NML intact, Fully Oriented, Alert, Normal Mood/Affect, Normal Response, Motor Strength 5/5. negative: EOM Palsy, Facial Droop, Numbness, Sensory Deficit, Finger to Nose ED Treatment Course - LABORATORY CBC & Chemistry Diagram: 08/26/19 07:15 08/26/19 07:15 - ADDITIONAL ORDERS Additional order review: Laboratory Results 08/25/19 08/25/19 06:40 06:40 Sodium 138 Potassium 4.4 Chloride 103 Carbon Dioxide 31 Anion Gap 4 L BUN 9.6 Creatinine 1.0 Est GFR (CKD-EPI)AfAm 88.79 Est GFR (CKD-EPI)NonAf 76.61 Random Glucose 102 Calcium 8.7 Total Bilirubin 1.0 AST 23 ALT 19 Alkaline Phosphatase 65 Total Protein 7.6 Albumin 4.0 Serum , Qual Negative - Medications Given in the ED: ED Medications Discontinued Medications Generic Name Dose Route Start Last Admin Trade Name Freq PRN Reason Stop Dose Admin Albuterol Sulfate 4 puff 08/25/19 06:23 08/25/19 07:21 Ventolin Hfa Inhaler - IH 08/25/19 06:24 4 puff ONCE ONE Administration Epinephrine 1 vial 08/25/19 06:36 08/25/19 07:21 S-2 08/25/19 06:37 1 vial ONCE ONE Administration Epinephrine 0.3 mg 08/25/19 07:19 08/25/19 07:21 Epipen 0.3mg - IM 08/25/19 07:20 0.3 mg ONCE ONE Administration Ipratropium [place] 1 amp 08/25/19 06:37 08/25/19 07:21 Atrovent 0.02% Nebulizer - NEB 08/25/19 06:38 1 amp ONCE ONE Administration Methylprednisolone Sodium Succinate 125 mg 08/25/19 06:23 08/25/19 07:21 Solu-Medrol - IVPUSH 08/25/19 06:24 125 mg ONCE ONE Administration Medical Decision Making - Medical Decision Making 29 yo F with a hx of asthma presents to the emergency department with sob Initial vitals: Initial Vital Signs Temp Pulse Resp BP Pulse Ox 98.2 F 124 H 28 H 154/100 98 08/25/19 06:28 08/25/19 06:28 08/25/19 06:28 08/25/19 06:28 08/25/19 06:28 Work up: patient presents to the emergency department with sob Received 1.5 treatments of duoneb by EMS. The patient received albuterol nebulizer at home prior to EMS activation Patient received 3 treatments of duoneb, solumedrol, 2 grams of magnesium, racemic epinephrine, epinephrine 0.3 mg IM injection and albuterol nebulizer. Patient was placed on 15 L of non rebreather with improvement. Will rule out infectious etiology of asthma exacerbation with plan to admit due to requirement of epinephrine for asthma exacerbation Laboratory Tests 08/25/19 08/25/19 08/25/19 06:40 06:40 06:40 WBC 12.8 H RBC 4.56 Hgb 14.0 Hct 42.6 MCV 93.4 MCH 30.7 MCHC 32.9 RDW 13.5 Plt Count 364 MPV 8.4 Anticoagulation Therapy Puncture Site Patient Temperature ABG pH ABG pCO2 ABG pO2 ABG HCO3 ABG O2 Sat (Measured) ABG O2 Content ABG Base Excess Rick Test Patient On Oxygen O2 Delivery Device Oxygen Flow Rate Vent Mode Vent Rate Mechanical Rate PEEP Pressure Support Vent Sodium 138 Potassium 4.4 Chloride 103 Carbon Dioxide 31 Anion Gap 4 L BUN 9.6 Creatinine 1.0 Est GFR (CKD-EPI)AfAm 88.79 Est GFR (CKD-EPI)NonAf 76.61 Random Glucose 102 Calcium 8.7 Total Bilirubin 1.0 AST 23 ALT 19 Alkaline Phosphatase 65 Total Protein 7.6 Albumin 4.0 Serum , Qual Negative 08/25/19 07:00 WBC RBC Hgb Hct MCV MCH MCHC RDW Plt Count MPV Anticoagulation Therapy No Result Required. Puncture Site No Result Required. Patient Temperature No Result Required. ABG pH 7.212 L ABG pCO2 63.60 H ABG pO2 100.4 H ABG HCO3 25.0 ABG O2 Sat (Measured) 96.2 ABG O2 Content No Result Required. ABG Base Excess -4.1 L Rick Test No Result Required. Patient On Oxygen No Result Required. O2 Delivery Device No Result Required. Oxygen Flow Rate No Result Required. Vent Mode No Result Required. Vent Rate No Result Required. Mechanical Rate No Result Required. PEEP No Result Required. Pressure Support Vent No Result Required. Sodium Potassium Chloride Carbon Dioxide Anion Gap BUN Creatinine Est GFR (CKD-EPI)AfAm Est GFR (CKD-EPI)NonAf Random Glucose Calcium Total Bilirubin AST ALT Alkaline Phosphatase Total Protein Albumin Serum , Qual Patient has leukocytosis of 12.8, pH with 7.212 with an elevated pCO2. Normal CXR without intrathoracic pathologies noted. EKG: Sinus tachycardia incomplete RBBB noted without ST elevations or depressions. Patient was re-assessed. Resting comfortably on 15 L of non rebreather with diffuse wheezing throughout the lung esposito. patient to be admitted for asthma exacerbation with increased pco2 noted on abg likely due to acute exacerbation Discharge - Discharge Information Problems reviewed: Yes Clinical Impression/Diagnosis: Asthma exacerbation Qualifiers: Asthma severity: moderate Asthma persistence: persistent Qualified Code(s): J45.41 - Moderate persistent asthma with (acute) exacerbation - Follow up/Referral - Patient Discharge Instructions - Post Discharge Activity
[2019-08-25 07:32] LABS: ARTERIAL BLD GAS O2 SATURATION 96.2 mmHg (95-98); ARTERIAL BLOOD GAS BASE EXCESS -4.1 mmol/L (-2-2); ARTERIAL BLOOD GAS PO2 100.4 mmHg (80-100); ARTERIAL BLOOD GAS pH 7.212 (7.350-7.450)
[2019-08-25] MEDS ORDERED: ALBUTEROL SO4 0.083% IH SOL 2.5 MG/3 ML VIAL.NEB. NEB ONE ×3 (07:33→09:48)
--- NOTE | 2019-08-25 08:27 | HP ---
Admitting History and Physical - Primary Care Physician PCP: James Fair - Admission Chief Complaint: sob started 3 days ago History of Present Illness: 08/25/19 07:25 29 yo F with a hx of asthma presents to the emergency with shortness of breath for past 3 days, coughing with clear sputums and feels congested, no fever, no chills, no exposure to ill contacts, no nausea no vomiting, doesnt see her her doctor on regular basis, was using ventolin, not on any steroid inhaler, whenever feels sick comes to the ER, and get the inhalers, and also steroids, c/o L ear itcing, uses 1q tips, and also nasal itching, . The patient received 1.5 nebulizing treatments in the field by EMS and the patient used multiple rounds of albuterol at home. The patient does not take an inhaled steroid inhaler at home. The patient uses marijuana regularly and used it recently. Denies the following: fevers, chills, chest pain, headaches, nausea, abdominal pain, dysuria, hematuria, diarrhea, and leg pain/swelling. Had 1x vomiting episode in the depart History Source: Patient Limitations to Obtaining History: No Limitations - Past Medical History Pulmonary: Yes: Asthma (non compliant,) ENT: Yes: Other (L esr itching, and nasal itching,) - Past Surgical History Past Surgical History: Yes: None - Smoking History Smoking history: Unknown if ever smoked Have you smoked in the past 12 months: No Aproximately how many cigarettes per day: 1 If you are a former smoker, when did you quit?: 1MONTHAGO - Alcohol/Substance Use Hx Alcohol Use: No History of Substance Use: reports: Marijuana (stopped a month ago) - Social History Usual Living Arrangement: Yes: Other (uncle ,) 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 Home Medications - Allergies Allergies/Adverse Reactions: Allergies Allergy/AdvReac Type Severity Reaction Status Date / Time No Known Allergies Allergy Verified 08/25/19 06:28 - Home Medications Home Medications: Ambulatory Orders Albuterol Sulfate Inhaler - [Ventolin HFA Inhaler -] 2 inh PO Q4H PRN #1 inh 05/12/19 Loratadine [Claritin -] 10 mg PO DAILY #30 tablet 06/19/19 Azithromycin [Zithromax 250mg Tablets -] 250 mg PO UTDICT #6 tab 06/30/19 Cefdinir [Omnicef -] 300 mg PO BID #20 capsule 06/30/19 predniSONE [Deltasone -] 40 mg PO DAILY #8 tablet 06/30/19 Albuterol Sulfate Inhaler - [Ventolin HFA Inhaler -] 1 - 2 inh PO QID PRN #1 inhaler 07/27/19 predniSONE [Deltasone -] 40 mg PO DAILY #8 tablet 07/27/19 Family Medical History Family History: Denies Physical Examination Vital Signs: Vital Signs Temperature 98.2 F 08/25/19 06:28 Pulse Rate 124 H 08/25/19 06:28 Respiratory Rate 28 H 08/25/19 06:28 Blood Pressure 154/100 08/25/19 06:28 O2 Sat by Pulse Oximetry (%) 98 08/25/19 06:28 Constitutional: Yes: Well Nourished, No Distress, Calm Eyes: Yes: Conjunctiva Clear, EOM Intact, Other HENT: Yes: Atraumatic, Normocephalic, Other (ear examines, no dc, no erythema of ext aud canal TM intact , no erythema, L ear little wax,) Neck: Yes: Supple, Trachea Midline Respiratory: Yes: Wheezes (expiratory with good air entry,) Edema: No Peripheral Pulses WNL: Yes Neurological: Yes: WNL, Alert, Oriented ...Motor Strength: WNL Labs: CBC, BMP 08/25/19 06:40 08/25/19 06:40 Imaging - Results X-ray: Image Reviewed (normal cxr, no pneumonia,) Assessment/Plan 29 yo F with a hx of asthma presents to the emergency with shortness of breath 1. asthma exacerbation sating 100 on the NRB, and now comfortable, will monitor and change to the NC as tolerated, solumedrol and nebs and covid testing done start the zithromax 2. L ear itchng use debrox, for wax, 3.seasonal allergies claritin, 4. dvt prophylaxis, will use scd and early ambulation, Visit type - Emergency Visit Emergency Visit: Yes ED Registration Date: 08/25/19 Care time: The patient presented to the Emergency Department on the above date and was hospitalized for further evaluation of their emergent condition. - New Patient This patient is new to me today: Yes Date on this admission: 08/25/19 - Critical Care Critical Care patient: No
[2019-08-25] MEDS ORDERED: methylPREDNISolone NA SUCC 40 MG/1 ML VIAL ONE (08:49)
[2019-08-25] MEDS: methylPREDNISolone NA SUCC 40 MG/1 ML VIAL IVPUSH SCH ×3 (08:59→20:51)
[2019-08-25] MEDS ORDERED: AZITHROMYCIN IVPB 500 MG/250 ML BAG IVPB ONE ×2 (09:20→10:04)
[2019-08-25] MEDS ORDERED: LORATADINE 10 MG TABLET ONE (09:48)
[2019-08-25] MEDS: LORATADINE 10 MG TABLET PO SCH (09:57)
[2019-08-25] MEDS: ALBUTEROL SO4 0.083% IH SOL 2.5 MG/3 ML VIAL.NEB. NEB PRN ×2 (09:57→23:44)
[2019-08-25] MEDS ORDERED: ACETYLCYSTEINE 20% 200MG/ML 30 ML VIAL *FOR ORAL / INH USE ONLY IH ONE (10:03)
[2019-08-25] MEDS ORDERED: ACETYLCYSTEINE 20% 200MG/ML 4 ML VIAL *FOR ORAL / INH USE ONLY ONE (10:08)
[2019-08-25] MEDS ORDERED: guaiFENesin 200 MG/10 ML 10 ML UNIT-DOSE CUPS PO PRN (11:19)
[2019-08-25 17:04] VITALS: BMI 22.7
[2019-08-25 18:17] LABS: METHADONE, UR NEGATIVE ng/ml (CUTOFF=300); OPIATES, URI NEGATIVE ng/ml (CUTOFF=300); PHENCYCLIDINE,URINE NEGATIVE ng/ml (CUTOFF=25); URINE AMPHETAMINES NEGATIVE ng/ml (CUTOFF=500); URINE BARBITURATES NEGATIVE ng/ml (CUTOFF=200); URINE BENZODIAZEPINES NEGATIVE ng/ml (CUTOFF=200)
[2019-08-25 18:34] LABS: COCAINE, UR POSITIVE ng/ml (CUTOFF=300)
[2019-08-26] MEDS: methylPREDNISolone NA SUCC 40 MG/1 ML VIAL IVPUSH SCH ×3 (02:26→15:21)
[2019-08-26] MEDS: ALBUTEROL SO4 0.083% IH SOL 2.5 MG/3 ML VIAL.NEB. NEB PRN ×2 (07:25→14:40)
[2019-08-26 08:54] LABS: BASO % 0.2 % (0-2.0); HEMATOCRIT 38.1 % (32.4-45.2); HEMOGLOBIN 12.5 GM/dL (10.7-15.3); LYMPH % 8.4 % (8-40); MCH 30.4 pg (25.7-33.7); MCHC 32.7 g/dl (32.0-36.0); MEAN CELL VOLUME 92.9 fl (80-96); MEAN PLT VOLUME 8.8 fl (7.5-11.1); MONO % 3.8 % (3.8-10.2); NEUT % 87.6 % (42.8-82.8); PLATELET COUNT 347 K/MM3 (134-434); RDW 13.7 % (11.6-15.6); WHITE BLOOD COUNT 16.4 K/mm3 (4.0-10.0)
--- NOTE | 2019-08-26 09:24 | EKG ---
Test Reason : Blood Pressure : / mmHG Vent. Rate : 104 BPM Atrial Rate : 104 BPM P-R Int : 154 ms QRS Dur : 096 ms QT Int : 348 ms P-R-T Axes : 077 057 052 degrees QTc Int : 457 ms SINUS TACHYCARDIA INCOMPLETE RIGHT BUNDLE BRANCH BLOCK BORDERLINE ECG NO PREVIOUS ECGS AVAILABLE Confirmed by SABRINA CLEMENT MD ([id number]) on 08/26/2019 9:24:00 AM Referred By: Confirmed By:SABRINA CLEMENT MD
[2019-08-26 09:25] LABS: ALBUMIN 3.3 g/dl (3.4-5.0); BILIRUBIN,TOTAL 0.2 mg/dL (0.2-1); BLOOD UREA NITROGEN 8.8 mg/dL (7-18); CALCIUM 9.1 mg/dL (8.5-10.1); CREATININE 0.9 mg/dL (0.55-1.3); POTASSIUM 4.6 mmol/L (3.5-5.1); TOT PROT 6.8 g/dl (6.4-8.2)
[2019-08-26] MEDS ORDERED: PT OWN MED DRAWER 7, Y5N ONE (09:38)
[2019-08-26] MEDS ORDERED: PNEUMOC 13-VAL CONJ-DIP CRM/PF 0.5 ML DISP.SYRIN IM ONE (10:00)
[2019-08-26] MEDS ORDERED: AZITHROMYCIN IVPB 250 MG in DEXTROSE 5%-WATER - 250 ML IVPB SCH (10:00)
[2019-08-26] MEDS: LORATADINE 10 MG TABLET PO SCH (10:20)
[2019-08-26 11:42] VITALS: BP 128/73; PULSE 96; TEMP 99
--- NOTE | 2019-08-26 14:24 | DS ---
Physical Exam: SUBJECTIVE: Patient seen and examined. Feels well. Eager to go home. OBJECTIVE: Vital Signs Period Temp Pulse Resp BP Sys/Epps Pulse Ox Last 24 Hr 0.9 F-99 F 84-114 20-24 109-138/52-76 94-97 PHYSICAL EXAM Gen: AAOx3, NAD HEENT: NCAT, EOMI Neck: supple, no jvd Cardio: rrr, normal s1s2, no mrg Pulm: minimal wheeze Abd: soft, nontender, nondistended Ext: no edema LABS Laboratory Results - last 24 hr 08/25/19 08/26/19 08/26/19 17:25 07:15 07:15 WBC 16.4 H RBC 4.10 Hgb 12.5 Hct 38.1 MCV 92.9 MCH 30.4 MCHC 32.7 RDW 13.7 Plt Count 347 MPV 8.8 Absolute Neuts (auto) 14.4 H Neutrophils % 87.6 H Lymphocytes % 8.4 D Monocytes % 3.8 Eosinophils % 0.0 D Basophils % 0.2 Nucleated RBC % 0 Sodium 137 Potassium 4.6 Chloride 104 Carbon Dioxide 23 Anion Gap 10 BUN 8.8 Creatinine 0.9 Est GFR (CKD-EPI)AfAm 100.85 Est GFR (CKD-EPI)NonAf 87.01 Random Glucose 139 H Calcium 9.1 Total Bilirubin 0.2 AST 11 L ALT 16 Alkaline Phosphatase 90 Total Protein 6.8 Albumin 3.3 L Opiates Screen Negative Methadone Screen Negative Barbiturate Screen Negative Phencyclidine Screen Negative Ur Amphetamines Screen Negative MDMA (Ecstasy) Screen Negative Benzodiazepines Screen Negative Cocaine Screen Positive A* U Marijuana (THC) Screen Negative HOSPITAL COURSE: Date of Admission:08/25/19 Date of Discharge: 08/26/19 Pt is a 29 y/o F with PMH Asthma who presented to the ED with shortness of breath. Pt has a history of multiple hospital visits for asthma but no admissions prior to this occurrence. She typically uses her albuterol twice weekly and uses her nebulizer if her asthma "gets bad". She states she felt very short of breath yesterday when she came to ED but feels well now. She states she's never seen a project economist or had pulmonary function testing, nor has she seen an pilot, though she suspects she has many allergies including pollen and cats. She is also exposed to second hand cigarette smoke from her friends. In the hospital she was treated with steroids, bronchodilators, and racemic ep inephrine, which improved her symptoms greatly. Of note, Utox was positive for cocaine. She denied other substance abuse and stated she uses cocaine recreationally only. She was cautioned against the use of street drugs. Of note, she states she has "something in the left lung" that she was supposed to follow up but never did. On chart review, CXR from 18 Apr 2019 revealed a "density" not seen on present imaging. She was advised to discuss this with her project economist if she has questions in the future. Minutes to complete discharge: 30 Discharge Summary Problems reviewed: Yes Reason For Visit: EXACERBATION OF ASTHMA Current Active Problems Asthma exacerbation (Acute) Condition: Stable - Instructions Diet, Activity, Other Instructions: You were in the hospital because of asthma. You need to make sure you follow up with your primary care doctor. You are being given a referral for a pulmologist, Dr. Haines. You need to make sure to call for an appointment. You need to follow up on the density of your left lung seen on 18 Apr 2019. You are being discharged with the following medications: Prednisone: 40 mg for 2 days, 30 mg for 2 days, 20 mg for 1 day, 10 mg for 1 day Breo Ellipta daily Make sure you take your medications as directed and complete your course of prednisone. You should not use illicit drugs like cocaine. These agents can be very dangerous to your health. If you develop worsening symptoms, return to the emergency department. Referrals: James Fair MD [Staff Physician] - Garrick Haines MD, MD [Staff Physician] - Disposition: HOME - Home Medications Comprehensive Discharge Medication List: Ambulatory Orders Albuterol Sulfate Inhaler - [Ventolin HFA Inhaler -] 2 inh PO Q4H PRN #1 inh 05/12/19 Loratadine [Claritin -] 10 mg PO DAILY #30 tablet 06/19/19 Salmeterol/Fluticasone [Advair 100Mcg/50Mcg -] 1 inh PO BID #1 diskus 08/26/19 predniSONE [Deltasone -] See Taper PO ASDIR #17 tab 08/26/19 This patient is new to me today: Yes Date on this admission: 08/26/19 Emergency Visit: No Critical Care patient: No - Discharge Referral Referred to [facility] Med P.C.: No ATTENDING PHYSICIAN STATEMENT I saw and evaluated the patient. I reviewed the resident's note and discussed the case with the resident. I agree with the resident's findings and plan as documented. SUBJECTIVE: OBJECTIVE: ASSESSMENT AND PLAN:
[2019-08-27] MEDS ORDERED: CARBAMIDE PEROXIDE 6.5% OTIC 15 ML BOTTLE AS SCH (10:00)
== END 2019-08-26 15:38 | disposition home or self-care (01) | DRG 141 ==
LOC: JER 06:21 → JERBED 08:01 → J5S 13:21
PROVIDERS: ADMIT Internal Medicine; ATTEND Internal Medicine
DX: J45.41 Moderate persistent asthma with (acute) exacerbation (principal); F12.90 Cannabis use, unspecified, uncomplicated; F14.90 Cocaine use, unspecified, uncomplicated
CPT/HCPCS: 36415; 36600; 71045-TC-FY; 80053; 80307; 82803; 84703; 85025; 85027; 93005; 93010; 94640; 99291; U0003

== ENCOUNTER 2019-10-07 13:03 | Emergency (ER) | payer OTHER ==
[2019-10-07 13:10] VITALS: TEMP 97.9; BMI 24.5
[2019-10-07] MEDS ORDERED: ALBUTEROL SO4 2.5/IPRATROPIUM 0.5 INH SOL 3 ML VIAL.NEB. NEB ONE ×2 (13:26→13:53)
[2019-10-07] MEDS ORDERED: methylPREDNISolone NA SUCC 125 MG/2 ML VIAL IVPB ONE (13:26)
[2019-10-07] MEDS ORDERED: MAGNESIUM SULF 50% (8.12 MEQ/2 ML-1 GM VIAL) IVPB ONE (13:27)
--- NOTE | 2019-10-07 13:51 | PDOC ---
History of Present Illness - General Chief Complaint: Shortness of Breath Stated Complaint: ASTHMA ATTACK Time Seen by Provider: 10/07/19 13:22 History Source: Patient Exam Limitations: No Limitations - History of Present Illness Initial Comments: Guerrero is a 29 yo F w a hx of moderate/persistent asthma - never been intubated or to the ICU - controlled on baseline steroids presents to the ER with 12 hours of worsening SOB and difficulty breathing stating stating she is having an asthma exacerbation because she ran out of her steroids. She states she has asthma exacerbations often and had an exacerbation 1 month ago. She states she has been taking prednisone but stopped 1 week ago. She tried taking 3 breathing treatments at home but they were not enough so she came in to get steroids. Denies fevers, chills, productive cough, chest pain, headache, neck pain, syncope PCP: Isidro Davidson PSh: None reported Allergies: NKA, NKDA Social Hx: Denies smoking, drinking, or other substance abuse Past History - Medical History Allergies/Adverse Reactions: Allergies Allergy/AdvReac Type Severity Reaction Status Date / Time No Known Allergies Allergy Verified 10/07/19 13:07 Home Medications: Ambulatory Orders Albuterol 2.5/Ipratropium 0.5 [Duoneb -] 1 neb IH QID PRN #1 vial.neb. 01/18/19 Albuterol Sulfate Inhaler - [Ventolin HFA Inhaler -] 2 inh PO Q4H PRN #1 inh 05/12/19 Fluticasone/Salmeterol [Advair Hfa 230-21 Mcg Inhaler] 12 gm IH BID 30 Days #1 aer.w.adap 10/07/19 Fluticasone/Vilanterol [Breo Ellipta 200-25 Mcg INH] 1 each IH PRN #1 blst.w.dev 10/07/19 Prednisone [Prednisone 50 MG TABLETS] 50 mg PO DAILY 4 Days #4 tablet 10/07/19 Asthma: Yes COPD: No - Reproductive History Is Patient Now?: No (#): 3 Cervical CA: No Dysfunctional Uterine Bleeding: No Ectopic : No Endometrial CA: No Polycystic Ovaries: No Therapeutic (s) & number: Yes (2) Tubal Ligation: No - Immunization History Immunization Up to Date: Yes - Psycho-Social/Smoking History Smoking Status: No Smoking History: Former smoker Have you smoked in the past 12 months: No Number of Cigarettes Smoked Daily: 1 If you are a former smoker, when did you quit?: 1MONTHAGO Information on smoking cessation initiated: No 'Breaking Loose' booklet given: 08/25/19 - Substance Abuse Hx (Audit-C & DAST Scrn) How often the patient has a drink containing alcohol: Never Score: In Men: 4 or > Positive; In Women: 3 or > Positive: 0 Screen Result (Pos requires Nsg. Audit-10AR): Negative In the last yr the pt used illegal drug/Rx for NonMed reason: No Score: Yes response is considered Positive: 0 Screen Result (Positive result requires Nsg. DAST-10): Negative Review of Systems - Review of Systems Able to Perform ROS?: Yes Comments:: CONSTITUTIONAL: Absent: fever, no chills, no fatigue EYES: Absent: visual changes ENT: Absent: ear pain, no sore throat CARDIOVASCULAR: Absent: chest pain, no palpitations RESPIRATORY: Present: Cough, SOB GI: Absent: abdominal pain, no nausea, no vomiting, no constipation, no diarrhea GENITOURINARY: Absent: dysuria, no frequency, no hematuria MUSKULOSKELETAL: Absent: back pain, no arthralgia, no myalgia SKIN: Absent: rash NEURO: Absent: headache *Physical Exam - Vital Signs Last Vital Signs Temp Pulse Resp BP Pulse Ox 97.9 F 93 H 20 96/77 97 10/07/19 13:08 10/07/19 13:08 10/07/19 13:08 10/07/19 13:08 10/07/19 13:08 - Physical Exam GENERAL: Well-appearing, well-nourished. No apparent distress. HEENT: Normocephalic, atraumatic. PERRL, EOM intact. CARDIOVASCULAR: Normal S1, S2. Regular rate and rhythm. PULMONARY: There is bilateral coarse wheezes throughout all lung esposito. No crackles. ABDOMEN: Soft, non-distended, non-tender. EXTREMITIES: Normal ROM in all four extremities. No gross deformities. SKIN: Warm, dry. No rash NEUROLOGICAL: No focal neurological deficits. Medical Decision Making - Medical Decision Making Guerrero is a 29 yo F w a hx of moderate/persistent asthma - never been intubated or to the ICU - controlled on baseline steroids presents to the ER with 12 hours of worsening SOB and difficulty breathing stating stating she is having an asthma exacerbation because she ran out of her steroids. She states she has asthma exacerbations often and had an exacerbation 1 month ago. She states she has been taking prednisone but stopped 1 week ago. She tried taking 3 breathing treatments at home but they were not enough so she came in to get steroids. Vital Signs Temp Pulse Resp BP Pulse Ox 97.9 F 93 H 20 96/77 98 10/07/19 13:08 10/07/19 13:08 10/07/19 13:08 10/07/19 13:08 10/07/19 14:07 DDx IBNLT: Asthma exacerbation, lack of medication related exacerbation, respiratory distress Plan: duonebs, steroids, magnesim, re-assess Re-assessment: After medication treatments patient is no longer wheezing, sounds great on auscultation with clear lung sounds, and is no longer in respiratory distress Plan: Will send patient home with advair and short course of prednisone with PCP referall and strict return precautions. The patient appears clinically sober, has no evidence of clinical intoxication, is A&O x4, has no sustained nystagmus, and appears to be capable and have capacity to make reasonable decisions. The patient states they are currently in the emergency department, knows who the president is, states the correct time, correct day, and correct month. The patient is ambulatory in ER and has walked around the nursing station multiple times with a straight and steady gait, and is not ataxic. Tolerating PO well, ate a sandwich and drank juice. Denies having any SI or HI. Patient states will not be driving home. I discussed the physical exam findings, ancillary test results and final diagnoses with the patient. I answered all of the patient's questions. The patient was satisfied with the care received and felt comfortable with the discharge plan and treatment plan. The patient will call their primary care physician within 24 hours to arrange follow-up and will return to the Emergency Department with any new, persistent or worsening symptoms. Dispo: Home Please note, this clinical encounter is taking place during a federal and state health care emergency attributable to the novel Muñoz Virus pandemic. The [place] of the Department of Health and Human Services has declared, pursuant to the Public Health Service Act 319F-3 (42 U.S.C. 247d-6d), that a covered persons activities related to medical countermeasures against COVID-19 will be immune from liability under Federal and State law. Discharge - Discharge Information Problems reviewed: Yes Clinical Impression/Diagnosis: Asthma Qualifiers: Asthma severity: mild Asthma persistence: unspecified Asthma complication type: with acute exacerbation Qualified Code(s): J45.901 - Unspecified asthma with (acute) exacerbation Condition: Improved Disposition: HOME - Admission No - Additional Discharge Information Prescriptions: Fluticasone/Salmeterol [Advair Hfa 230-21 Mcg Inhaler] 12 gm IH BID 30 Days #1 aer.w.adap Fluticasone/Vilanterol [Breo Ellipta 200-25 Mcg INH] 1 each IH PRN #1 blst.w.dev Prednisone [Prednisone 50 MG TABLETS] 50 mg PO DAILY 4 Days #4 tablet - Follow up/Referral Referrals: Isidro Davidson MD [Primary Care Provider] - - Patient Discharge Instructions Patient Printed Discharge Instructions: Asthma -- Adult Additional Instructions: You came into the ER with an asthma excaerbation because you ran out of your home medications. We gave you breathing treatments in the ER and you felt better and started breathing better. We sent medications to your pharmacy. Please make sure to go and pick them up. You must return to the Emergency Department with any new complaints, if your symptoms persist and do not improve or if you develop any other new or worsening concerns. As discussed, please call to follow up with your Primary Care physician in 1-2 days to discuss what happened to you in the emergency room, and make sure you are being looked after and taken care of. Your emergency room visit is not complete without this follow up appointment. Please read the attached handouts for further information about your ER visit and what you should do moving forward. Thank you for coming to the [facility]. We hope you feel better soon! Print Language: FIJIAN - Post Discharge Activity
[2019-10-07] MEDS ORDERED: MAGNESIUM SULFATE IN WATER 2 GM/50 ML IVPB IVPB ONE (13:53)
[2019-10-07] MEDS ORDERED: methylPREDNISolone NA SUCC 125 MG/2 ML VIAL ONE (13:54)
--- NOTE | 2019-10-07 15:40 | PDOC ---
Documentation entered by Ara Richardson SCRIBE, acting as scribe for Rodriguez Metzger MD. Rodriguez Metzger MD: This documentation has been prepared by the Dylan haile Brenda, SCRIBE, under my direction and personally reviewed by me in its entirety. I confirm that the documentation accurately reflects all work, treatment, procedures, and medical decision making performed by me. Attending Attestation - Resident Resident Name: Mando Mendoza - ED Attending Attestation I have performed the following: I have examined & evaluated the patient, The case was reviewed & discussed with the resident, I agree w/resident's findings & plan, Exceptions are as noted - HPI HPI: 10/07/19 15:03 29 years old moderate persistent asthma on daily prednisone never been intubated ran out of her prednisone at home presents to the ED with asthma exacerbation. Symptoms are mild to moderate persistent constant no exacerbating relieving factors. Tried 3 rescue nebs at home with no improvement Denies fever chills cough feels tightness and wheezing ROS: A complete review of 10 out of 10 review of systems is taken and is negative apart from what is previously mentioned below and in the HPI. - Physicial Exam PE: 10/07/19 15:03 Vitals: Triage Vital signs reviewed General Appearance: No acute distress, well nourished well developed, Head: Atraumatic, Eyes: Pupils equal reactive round, extraocular movement intact Ears: TM's normal bilaterally; Nose: Nares patent bilaterally; no nasal congestion Throat: Posterior oropharynx without erythema, mucous membranes moist, Neck: Supple; no Nucal rigidity Chest Wall: Nontender Cardiac: Regular rate and rhythym, no murmurs, no rubs, no gallops, Lungs: Bilateral end expiratory wheezing Abdomen: Soft, non distended, normal bowel sounds, non tender to palpation Extremities: Full range of motion to all extremities, no cyanosis, clubbing, or edema Skin: Warm and dry, no rashes or lesions, no rash, no petechiae Psych: Normal mood, normal affect - Medical Decision Making 10/07/19 15:26 21 years old with moderate asthma 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 Discharge - Discharge Information Problems reviewed: Yes Clinical Impression/Diagnosis: Asthma Qualifiers: Asthma severity: mild Asthma persistence: unspecified Asthma complication type: with acute exacerbation Qualified Code(s): J45.901 - Unspecified asthma with (acute) exacerbation Condition: Improved Disposition: HOME - Additional Discharge Information Prescriptions: Fluticasone/Salmeterol [Advair Hfa 230-21 Mcg Inhaler] 12 gm IH BID 30 Days #1 aer.w.adap Fluticasone/Vilanterol [Breo Ellipta 200-25 Mcg INH] 1 each IH PRN #1 blst.w.dev Prednisone [Prednisone 50 MG TABLETS] 50 mg PO DAILY 4 Days #4 tablet - Follow up/Referral Referrals: Isidro Davidson MD [Primary Care Provider] - - Patient Discharge Instructions Patient Printed Discharge Instructions: Asthma -- Adult Additional Instructions: You came into the ER with an asthma excaerbation because you ran out of your home medications. We gave you breathing treatments in the ER and you felt better and started breathing better. We sent medications to your pharmacy. Please make sure to go and pick them up. You must return to the Emergency Department with any new complaints, if your symptoms persist and do not improve or if you develop any other new or worsening concerns. As discussed, please call to follow up with your Primary Care physician in 1-2 days to discuss what happened to you in the emergency room, and make sure you are being looked after and taken care of. Your emergency room visit is not complete without this follow up appointment. Please read the attached handouts for further information about your ER visit and what you should do moving forward. Thank you for coming to the [facility]. We hope you feel better soon! Print Language: THAI - Post Discharge Activity
[2019-10-07 15:53] VITALS: BP 119/69; PULSE 98
--- NOTE | 2019-10-07 16:04 | EKG ---
Test Reason : Blood Pressure : / mmHG Vent. Rate : 085 BPM Atrial Rate : 085 BPM P-R Int : 164 ms QRS Dur : 098 ms QT Int : 382 ms P-R-T Axes : 073 059 039 degrees QTc Int : 454 ms NORMAL SINUS RHYTHM WITH SINUS ARRHYTHMIA INCOMPLETE RIGHT BUNDLE BRANCH BLOCK BORDERLINE ECG WHEN COMPARED WITH ECG OF 25-AUG-2019 09:37, NO SIGNIFICANT CHANGE WAS FOUND Confirmed by SHABBIR WOODWARD MD ([id number]) on 10/07/2019 4:04:12 PM Referred By: Confirmed By:SHABBIR WOODWARD MD
== END 2019-10-07 15:54 | disposition home or self-care (01) ==
LOC: JER 13:03
PROC: 3E0F7GC Introduction of Other Therapeutic Substance into Respiratory Tract, Via Natural or Artificial Opening (ICD-10-PCS; principal; 2019-10-07)
PROC: 3E033GC Introduction of Other Therapeutic Substance into Peripheral Vein, Percutaneous Approach (ICD-10-PCS; 2019-10-07)
DX: J45.901 Unspecified asthma with (acute) exacerbation (principal)
CPT/HCPCS: 93005; 93010; 99284-25

== ENCOUNTER 2019-11-14 09:55 | Observation (INO) | payer OTHER ==
[2019-11-14] MEDS ORDERED: DEXAMETHASONE SOD PHOSPHATE 10 MG/1 ML VIAL IVPUSH ONE (10:15)
--- NOTE | 2019-11-14 10:18 | PDOC ---
History of Present Illness - General Chief Complaint: Wheezing Stated Complaint: Asthma Time Seen by Provider: 11/14/19 10:03 History Source: Patient Exam Limitations: No Limitations - History of Present Illness Initial Comments: 11/14/19 10:18 PCP: Isidro Davidson HPI: 29 yo F pmh asthma presenting with shortness of breath and wheezing for 1 day. Patient awoke feeling short of breath c/w her prior asthma exacerbations. She used her home nebulizer and albuterol inhaler with minimal improvement. She attributes the exacerbation to recently sleeping with the AC on and having a dry cough with associated chills (no objective fevers, no chest pain). She presented "because I need prednisone." Visit last month ended with symptom resolution after steroids, nebs, and magnesium. All: NKDA Meds: Per chart PMH: Asthma PSH: Denies Past History - Travel History Traveled outside of the country in the last 30 days: No Close contact w/someone who was outside of country & ill: No - Medical History Allergies/Adverse Reactions: Allergies Allergy/AdvReac Type Severity Reaction Status Date / Time No Known Allergies Allergy Verified 11/14/19 12:55 Home Medications: Ambulatory Orders Albuterol Sulfate Inhaler - [Ventolin HFA Inhaler -] 2 puff IH QID PRN 11/14/19 Loratadine [Claritin] 10 mg PO DAILY 11/14/19 Asthma: Yes COPD: No - Reproductive History Is Patient Now?: No - Immunization History Immunization Up to Date: No - Psycho-Social/Smoking History Smoking History: Unknown if ever smoked Have you smoked in the past 12 months: No Information on smoking cessation initiated: No - Substance Abuse Hx (Audit-C & DAST Scrn) How often the patient has a drink containing alcohol: Never Score: In Men: 4 or > Positive; In Women: 3 or > Positive: 0 Screen Result (Pos requires Nsg. Audit-10AR): Negative In the last yr the pt used illegal drug/Rx for NonMed reason: No Score: Yes response is considered Positive: 0 Screen Result (Positive result requires Nsg. DAST-10): Negative Review of Systems - Review of Systems Able to Perform ROS?: Yes Is the patient limited [place] proficient: Yes Constitutional: Yes: Chills. No: Diaphoresis, Fever, Malaise, Night Sweats, Weakness HEENTM: No: Recent change in vision, Nose Congestion, Throat Pain Respiratory: Yes: Cough, Shortness of Breath, Wheezing. No: Orthopnea, SOB with Exertion, SOB at Rest, Productive cough Cardiac (ROS): No: Chest Pain, Irregular Heart Rate, Lightheadedness, Palpitations, Syncope, Chest Tightness ABD/GI: No: Constipated, Diarrhea, Nausea, Vomiting : No: Burning, Dysuria, Frequency Musculoskeletal: No: Muscle Pain, Muscle Weakness, Neck Pain Integumentary: No: Pruritus, Rash Neurological: No: Headache, Numbness, Tingling, Weakness Psychiatric: No: Stressors, Change in Appetite Endocrine: No: Increased Thirst, Increased Urine, Change in Weight Hematologic/Lymphatic: No: Anemia, Blood Clots, Easy Bleeding All Other Systems: Reviewed and Negative *Physical Exam - Vital Signs Last Vital Signs Temp Pulse Resp BP Pulse Ox 98.1 F 112 H 26 H 134/106 H 93 L 11/14/19 09:57 11/14/19 09:57 11/14/19 09:57 11/14/19 09:57 11/14/19 09:57 - Physical Exam 11/14/19 10:35 Vitals reviewed, notable for afebrile, tachy to 100s, sat 96% GEN: Well appearing, appears stated age, anxious. AAOx3. HEENT: NCAT, EOMI, PERRL. Sclera anicteric, non-injected. No facial asymmetry. Moist mucous membranes. Normal voice. Trachea midline. CV: RRR, S1/S2, no murmurs / rubs / gallops appreciated. LUNG: Slight increased work of breathing. +Wheezes. No rales, rhonchi. +Cough. Speaking full sentences. GI: Soft, NTND, +BS, no guarding, no rebound. No masses. EXTREMITIES: 2+ distal pulses. No clubbing / cyanosis / edema. No gross deformity in any extremity. SKIN: Warm, dry, no rashes appreciated, non-jaundiced. PSYCH: Normal mood and affect. Cooperative and appropriate. NEURO: CN grossly intact. Moving all extremities well. Normal strength and sensation grossly. ED Treatment Course - LABORATORY CBC & Chemistry Diagram: 11/15/19 07:57 11/15/19 07:57 Medical Decision Making - Medical Decision Making 11/14/19 10:32 29 yo F pmh asthma presenting with shortness of breath and wheezing for 1 day. History notable for chills and cough preceding SOB/wheezing, patient without classic COVID symptoms or known contacts. Exam notable for mild tachycardia, diffuse wheezing with good air movement, saturation 96% on room air, otherwise well appearing. - CBC, CMP, Mg - CXR - Duonebs - Dex 10mg IV - Mg 2mg IV 11/14/19 14:32 Patient with continued symptoms, wheezes Admitted to Dr. Bedoya Additional albuterol inhaler ordered while in holding area Dispo: Med/Surg Discharge - Discharge Information Problems reviewed: Yes Clinical Impression/Diagnosis: Cough in adult Acute asthma exacerbation Qualifiers: Asthma severity: unspecified severity Asthma persistence: intermittent Qualified Code(s): J45.21 - Mild intermittent asthma with (acute) exacerbation Condition: Stable - Follow up/Referral - Patient Discharge Instructions - Post Discharge Activity
[2019-11-14] MEDS ORDERED: MAGNESIUM SULF 50% (8.12 MEQ/2 ML-1 GM VIAL) IVPB ONE (10:19)
[2019-11-14] MEDS: ALBUTEROL SO4 2.5/IPRATROPIUM 0.5 INH SOL 3 ML VIAL.NEB. NEB SCH ×4 (10:45→11:20)
[2019-11-14] MEDS ORDERED: ALBUTEROL SO4 2.5/IPRATROPIUM 0.5 INH SOL 3 ML VIAL.NEB. NEB ONE ×2 (10:50→21:29)
[2019-11-14] MEDS ORDERED: DEXAMETHASONE SOD PHOSPHATE 10 MG/1 ML VIAL ONE (10:51)
[2019-11-14] MEDS ORDERED: MAGNESIUM SULFATE IN WATER 2 GM/50 ML IVPB IVPB ONE (10:51)
[2019-11-14 11:21] LABS: HEMATOCRIT 40.6 % (32.4-45.2); HEMOGLOBIN 13.6 GM/dL (10.7-15.3); MCH 31.7 pg (25.7-33.7); MCHC 33.5 g/dl (32.0-36.0); MEAN CELL VOLUME 94.5 fl (80-96); MEAN PLT VOLUME 8.2 fl (7.5-11.1); PLATELET COUNT 275 K/MM3 (134-434); RDW 13.7 % (11.6-15.6)
[2019-11-14 11:49] LABS: ALBUMIN 3.6 g/dl (3.4-5.0); BILIRUBIN,TOTAL 0.2 mg/dL (0.2-1); BLOOD UREA NITROGEN 13.6 mg/dL (7-18); CALCIUM 9.1 mg/dL (8.5-10.1); CREATININE 1.1 mg/dL (0.55-1.3); MAGNESIUM 2.2 mg/dL (1.8-2.4); POTASSIUM 4.2 mmol/L (3.5-5.1); TOT PROT 7.1 g/dl (6.4-8.2)
[2019-11-14] MEDS ORDERED: ALBUTEROL SO4 0.083% IH SOL 2.5 MG/3 ML VIAL.NEB. NEB ONE ×2 (12:04→12:13)
--- NOTE | 2019-11-14 14:04 | PDOC ---
Documentation entered by Amber Vega SCRIBE, acting as scribe for Mely Hummel MD. Mely Hummel MD: This documentation has been prepared by the suhasibe, Amber Vega SCRIBE, under my direction and personally reviewed by me in its entirety. I confirm that the documentation accurately reflects all work, treatment, procedures, and medical decision making performed by me. Attending Attestation - Resident Resident Name: JoseDez - ED Attending Attestation I have performed the following: I have examined & evaluated the patient, The case was reviewed & discussed with the resident, I agree w/resident's findings & plan, Exceptions are as noted - HPI HPI: 11/14/19 10:48 The patient is a 29-year-old female with a past medical history significant for asthma (no intubations, no hospitalizations, recent ER visit about a month ago for exacerbation resolved after steroids, nebulizer and magnesium) who presents to the emergency department with shortness of breath. The patient reports she woke up feeling short of breath, unrelieved with home nebulizer and albuterol. The patient reports associated symptoms of dry cough and chills, onset she attributes to sleeping with the AC on. Denies fever. Allergies: NKA PCP: Dr. Dontae Davidson. - Physicial Exam PE: 11/14/19 11:53 GENERAL: Awake, alert, and fully oriented, in no acute distress EYES: PERRLA, EOMI, sclera anicteric, conjunctiva clear ENT: Oropharynx clear without exudates. Moist mucosa NECK: Normal ROM, supple, no lymphadenopathy, JVD, or masses LUNGS: Diffuse wheezing, audible when phonating. Fair air movement, no crackles HEART: Regular rate and rhythm, normal S1 and S2, no murmurs, rubs or gallops ABDOMEN: Soft, nontender, normoactive bowel sounds. No guarding, no rebound. No masses EXTREMITIES: Normal range of motion, no edema. No clubbing or cyanosis. No cords, erythema, or tenderness NEUROLOGICAL: Normal speech, cranial nerves intact, equal strength and sensation b/l SKIN: Warm, Dry, normal turgor, no rashes or lesions noted. - Medical Decision Making 11/14/19 13:59 29yo F hx asthma presents to the ED with SOB, wheezing consistent with asthma exacerbation. Pt hypoxic on RA to 92%, corrects to 100% with nebs Pt given mg, BTB duonebs, steroids with improvement but still persistent SOB and mild wheezing CXR clear Despite redosing of albuterol, pt persistently SOB with 4L O2 requirement Plan to admit for persistent asthma exacerbation Discharge - Discharge Information Clinical Impression/Diagnosis: Cough in adult Acute asthma exacerbation Qualifiers: Asthma severity: unspecified severity Asthma persistence: intermittent Qualified Code(s): J45.21 - Mild intermittent asthma with (acute) exacerbation Condition: Stable - Follow up/Referral Referrals: Isidro Davidson MD [Primary Care Provider] - - Patient Discharge Instructions - Post Discharge Activity
[2019-11-14] MEDS ORDERED: ALBUTEROL SO4 HFA INHALER IH PRN (18:06)
[2019-11-14] MEDS ORDERED: ALBUTEROL SO4 HFA INHALER IH ONE (18:07)
--- NOTE | 2019-11-14 21:51 | HP ---
Admitting History and Physical - Past Medical History ...LMP: 11/07/19 ...: No - Smoking History Smoking history: Unknown if ever smoked Have you smoked in the past 12 months: No - Alcohol/Substance Use Hx Alcohol Use: No Home Medications - Allergies Allergies/Adverse Reactions: Allergies Allergy/AdvReac Type Severity Reaction Status Date / Time No Known Allergies Allergy Verified 11/14/19 12:55 - Home Medications Home Medications: Ambulatory Orders Albuterol Sulfate Inhaler - [Ventolin HFA Inhaler -] 2 puff IH QID PRN 11/14/19 Loratadine [Claritin] 10 mg PO DAILY 11/14/19 Physical Examination Vital Signs: Vital Signs Temperature 98.9 F 11/14/19 20:34 Pulse Rate 120 H 11/14/19 20:34 Respiratory Rate 18 11/14/19 20:34 Blood Pressure 142/86 11/14/19 20:34 O2 Sat by Pulse Oximetry (%) 97 11/14/19 20:34 Labs: CBC, BMP 11/14/19 11:05 11/14/19 11:05 Problem List - Problems (1) Acute asthma exacerbation Code(s): J45.901 - UNSPECIFIED ASTHMA WITH (ACUTE) EXACERBATION Qualifiers: Asthma severity: unspecified severity Asthma persistence: intermittent Qualified Code(s): J45.21 - Mild intermittent asthma with (acute) exacerbation
[2019-11-14] MEDS ORDERED: ALBUTEROL SO4 2.5/IPRATROPIUM 0.5 INH SOL 3 ML VIAL.NEB. NEB PRN (21:53)
[2019-11-14] MEDS ORDERED: AZITHROMYCIN IVPB 500 MG/250 ML BAG IVPB ONE (21:54)
[2019-11-14] MEDS ORDERED: TIOTROPIUM BROMIDE 2.5 MCG (SPIRIVA) RESPIMAT INHALER IH PRN (22:10)
[2019-11-14] MEDS ORDERED: cefTRIAXone SODIUM 1 GM VIAL ONE (22:13)
[2019-11-14] MEDS ORDERED: DEXTROSE 5%-WATER - 50 ML IVPB ONE (22:13)
[2019-11-14] MEDS: CEFTRIAXONE 1 GM in DEXTROSE 5%-WATER - 50 ML IVPB SCH (22:28)
[2019-11-14 22:44] VITALS: BMI 23.3
[2019-11-15] MEDS ORDERED: methylPREDNISolone NA SUCC 40 MG/1 ML VIAL IVPUSH ONE (00:45)
[2019-11-15] MEDS ORDERED: IPRATROPIUM BR 0.02% 0.5 MG/2.5 ML VIAL.NEB. NEB ONE (00:45)
[2019-11-15] MEDS ORDERED: guaiFENesin 200 MG/10 ML 10 ML UNIT-DOSE CUPS PO ONE (00:45)
[2019-11-15] MEDS ORDERED: PROMETHAZINE HCL 25 MG TABLET PO ONE (01:15)
[2019-11-15] MEDS: methylPREDNISolone NA SUCC 40 MG/1 ML VIAL IVPUSH SCH ×3 (01:26→18:06)
[2019-11-15 08:41] LABS: BASO % 0.2 % (0-2.0); HEMOGLOBIN 14.2 GM/dL (10.7-15.3); LYMPH % 8.6 % (8-40); MCH 31.8 pg (25.7-33.7); MCHC 33.7 g/dl (32.0-36.0); MEAN CELL VOLUME 94.2 fl (80-96); MEAN PLT VOLUME 8.7 fl (7.5-11.1); MONO % 3.8 % (3.8-10.2); NEUT % 87.4 % (42.8-82.8); PLATELET COUNT 301 K/MM3 (134-434); RBC 4.46 M/mm3 (3.60-5.2); RDW 13.7 % (11.6-15.6); WHITE BLOOD COUNT 11.9 K/mm3 (4.0-10.0)
[2019-11-15] MEDS ORDERED: cefTRIAXone SODIUM 1 GM VIAL ONE (09:17)
[2019-11-15] MEDS ORDERED: DEXTROSE 5%-WATER - 50 ML IVPB ONE (09:17)
[2019-11-15] MEDS ORDERED: PT OWN MED DRAWER 7, Y5N ONE (09:17)
[2019-11-15 09:18] LABS: ALBUMIN 3.6 g/dl (3.4-5.0); BLOOD UREA NITROGEN 9.2 mg/dL (7-18); POTASSIUM 4.4 mmol/L (3.5-5.1)
[2019-11-15 09:21] LABS: BILIRUBIN,TOTAL 0.4 mg/dL (0.2-1); TOT PROT 7.4 g/dl (6.4-8.2)
[2019-11-15] MEDS: CEFTRIAXONE 1 GM in DEXTROSE 5%-WATER - 50 ML IVPB SCH (09:41)
[2019-11-15] MEDS: AZITHROMYCIN IVPB 250 MG in DEXTROSE 5%-WATER - 250 ML IVPB SCH (09:41)
[2019-11-15] MEDS: ENOXAPARIN NA (PORCINE) 40 MG/0.4 ML DISP.SYRIN SQ SCH ×2 (09:41→10:00)
--- NOTE | 2019-11-15 13:54 | CON.PULM ---
Consult Consult Specialty:: PULMONARY Referred by:: MARY BETH Reason for Consultation:: ASTHMA - History of Present Illness Chief Complaint: WHEEZE History of Present Illness: 29 yo F pmh asthma presenting with shortness of breath and wheezing for 1 day. Patient awoke feeling short of breath c/w her prior asthma exacerbations. She us ed her home nebulizer and albuterol inhaler with minimal improvement. She attributes the exacerbation to recently sleeping with the AC on and having a dry cough with associated chills (no objective fevers, no chest pain). She presented "because I need prednisone." - History Source History Provided By: Patient, Medical Record Limitations to Obtaining History: No Limitations - Past Medical History MOLECULAR SPECTROSCOPIST: No: Alzheimer's Cardio/Vascular: No: AFIB Pulmonary: Yes: Asthma. No: Previously Intubated ...LMP: 11/07/19 ...: No ENT: Yes: Other - Past Surgical History Past Surgical History: Yes: None - Alcohol/Substance Use Hx Alcohol Use: No History of Substance Use: reports: Marijuana - Smoking History Smoking history: Unknown if ever smoked Have you smoked in the past 12 months: No Aproximately how many cigarettes per day: 3 If you are a former smoker, when did you quit?: 3 months ago - Social History Occupation: GRADER OPERATOR for [employer] Home Medications - Allergies Allergies/Adverse Reactions: Allergies Allergy/AdvReac Type Severity Reaction Status Date / Time No Known Allergies Allergy Verified 11/15/19 11:12 - Home Medications Home Medications: Ambulatory Orders Albuterol 2.5/Ipratropium 0.5 [Duoneb -] 1 neb IH QID PRN #1 vial.neb. 01/18/19 Albuterol Sulfate Inhaler - [Ventolin HFA Inhaler -] 2 inh PO Q4H PRN #1 inh 05/12/19 Fluticasone/Salmeterol [Advair Hfa 230-21 Mcg Inhaler] 12 gm IH BID 30 Days #1 aer.w.adap 10/07/19 Fluticasone/Vilanterol [Breo Ellipta 200-25 Mcg INH] 1 each IH PRN #1 blst.w.dev 10/07/19 Prednisone [Prednisone 50 MG TABLETS] 50 mg PO DAILY 4 Days #4 tablet 10/07/19 Albuterol Sulfate Inhaler - [Ventolin HFA Inhaler -] 2 puff IH QID PRN 11/14/19 Loratadine [Claritin] 10 mg PO DAILY 11/14/19 Family Medical History Family History: Unremarkable Review of Systems - Review of Systems Constitutional: denies: Fever Eyes: denies: Blurred Vision HENT: denies: Difficult Swallowing Neck: denies: Decreased ROM Cardiovascular: denies: Chest Pain Respiratory: reports: Cough, Exercise Intolerance, SOB, SOB on Exertion, Whe ezing. denies: Hemoptysis Physical Exam Vital Sings: Vital Signs Temperature 97.7 F 11/15/19 09:50 Pulse Rate 108 H 11/15/19 09:50 Respiratory Rate 18 11/15/19 09:50 Blood Pressure 125/75 11/15/19 09:50 O2 Sat by Pulse Oximetry (%) 100 11/15/19 09:50 Constitutional: Yes: Calm Eyes: Yes: EOM Intact HENT: Yes: Normocephalic Neck: Yes: Trachea Midline Cardiovascular: Yes: Regular Rate and Rhythm Respiratory: Yes: CTA Bilaterally Gastrointestinal: Yes: Normal Bowel Sounds Edema: No Labs: CBC, BMP 11/15/19 07:57 11/15/19 07:57 Imaging - Results Chest X-ray: Report Reviewed, Image Reviewed Problem List - Problems (1) Acute asthma exacerbation Code(s): J45.901 - UNSPECIFIED ASTHMA WITH (ACUTE) EXACERBATION Assessment/Plan RESOLVED ACUTE ASTHMATIC EPISODE WILL CHANGE TO ORAL STEROIDS CONTINUE BRONCHODILATORS CONSIDER CONTINUING TREATMENT AN OUTPATIENT COVID NOT DETECTED Reema BLANTON MD
--- NOTE | 2019-11-15 15:50 | PN ---
Progress Note, Physician History of Present Illness: no complaints - Current Medication List Current Medications: Active Medications Albuterol Sulfate (Ventolin Hfa Inhaler -) 2 puff IH Q4H PRN PRN Reason: SHORT OF BREATH/WHEEZING Last Admin: 11/14/19 18:15 Dose: 2 puff Documented by: Enoxaparin Sodium (Lovenox -) 40 mg SQ DAILY RAINA Last Admin: 11/15/19 09:41 Dose: 40 mg Documented by: Ceftriaxone Sodium 1 gm/ (Dextrose) 50 mls @ 100 mls/hr IVPB DAILY RAINA; Protocol Last Admin: 11/15/19 09:41 Dose: 100 mls/hr Documented by: Azithromycin 250 mg/ Dextrose 250 mls @ 250 mls/hr IVPB DAILY RAINA Last Admin: 11/15/19 09:41 Dose: 250 mls/hr Documented by: Methylprednisolone Sodium Succinate (Solu-Medrol -) 40 mg IVPUSH Q8H-IV RAINA Last Admin: 11/15/19 09:41 Dose: 40 mg Documented by: Tiotropium [place] (Spiriva Respimat) 2 puff IH ONCE PRN PRN Reason: Dyspnea - Objective Vital Signs: Vital Signs Temperature 97.7 F 11/15/19 09:50 Pulse Rate 108 H 11/15/19 09:50 Respiratory Rate 18 11/15/19 09:50 Blood Pressure 125/75 11/15/19 09:50 O2 Sat by Pulse Oximetry (%) 100 11/15/19 09:50 Constitutional: Yes: No Distress HENT: Yes: Atraumatic Neck: Yes: Supple Cardiovascular: Yes: Regular Rate and Rhythm Respiratory: Yes: Rhonchi, Wheezes Gastrointestinal: Yes: Normal Bowel Sounds Extremities: Yes: WNL Neurological: Yes: Alert, Oriented Labs: CBC, BMP 11/15/19 07:57 11/15/19 07:57 Problem List - Problems (1) Acute asthma exacerbation Assessment/Plan: still on iv steroids nebs iv abx covid negative Code(s): J45.901 - UNSPECIFIED ASTHMA WITH (ACUTE) EXACERBATION Assessment/Plan covering for dr arredondo today
[2019-11-15] MEDS: ALBUTEROL SO4 2.5/IPRATROPIUM 0.5 INH SOL 3 ML VIAL.NEB. NEB PRN (16:52)
[2019-11-16] MEDS: ALBUTEROL SO4 2.5/IPRATROPIUM 0.5 INH SOL 3 ML VIAL.NEB. NEB PRN (00:44)
[2019-11-16] MEDS: methylPREDNISolone NA SUCC 40 MG/1 ML VIAL IVPUSH SCH ×2 (01:43→09:08)
[2019-11-16 07:46] VITALS: BP 144/76; PULSE 112; TEMP 97.6
[2019-11-16] MEDS ORDERED: DEXTROSE 5%-WATER - 50 ML IVPB ONE (09:05)
[2019-11-16] MEDS ORDERED: cefTRIAXone SODIUM 1 GM VIAL ONE (09:05)
[2019-11-16] MEDS: CEFTRIAXONE 1 GM in DEXTROSE 5%-WATER - 50 ML IVPB SCH (09:07)
[2019-11-16] MEDS: ENOXAPARIN NA (PORCINE) 40 MG/0.4 ML DISP.SYRIN SQ SCH (09:08)
[2019-11-16] MEDS: AZITHROMYCIN IVPB 250 MG in DEXTROSE 5%-WATER - 250 ML IVPB SCH (09:52)
[2019-11-16] MEDS ORDERED: predniSONE 10 MG TABLET (UD) PO SCH (10:00)
== END 2019-11-16 13:41 | disposition home or self-care (01) ==
LOC: JER 09:55 → INTOOBSV 14:18 → JERBED 14:18 → UNDOADMOB 14:18 → MERGE 14:18 → J8W 20:28 → JERBED 20:28 → J8W 20:57 → JERBED 11-15 11:44
PROVIDERS: ADMIT Internal Medicine; ATTEND Internal Medicine
PROC: 3E03329 Introduction of Other Anti-infective into Peripheral Vein, Percutaneous Approach (ICD-10-PCS; principal; 2019-11-15)
PROC: 3E033GC Introduction of Other Therapeutic Substance into Peripheral Vein, Percutaneous Approach (ICD-10-PCS; 2019-11-15)
PROC: 3E0F7SF Introduction of Other Gas into Respiratory Tract, Via Natural or Artificial Opening (ICD-10-PCS; 2019-11-15)
DX: J45.21 Mild intermittent asthma with (acute) exacerbation (principal); R05 Cough
CPT/HCPCS: 36415; 71045-TC-FY; 80053; 83735; 84703; 85025; 85027; 94640; 96365; 96375; 99285-25; G0378; J1100; U0003

== ENCOUNTER 2020-01-08 11:34 | Emergency (ER) | payer OTHER ==
[2020-01-08 12:17] VITALS: BP 124/91; PULSE 94; TEMP 98.7; BMI 37.1
[2020-01-08 12:46] LABS: BASO % 0.5 % (0-2.0); EOS % 3.2 % (0-4.5); HEMATOCRIT 41.2 % (32.4-45.2); HEMOGLOBIN 13.7 GM/dL (10.7-15.3); MCH 31.2 pg (25.7-33.7); MCHC 33.3 g/dl (32.0-36.0); MEAN CELL VOLUME 93.7 fl (80-96); MEAN PLT VOLUME 8.9 fl (7.5-11.1); MONO % 4.2 % (3.8-10.2); NEUT % 83.1 % (42.8-82.8); PLATELET COUNT 259 K/MM3 (134-434); RDW 13.9 % (11.6-15.6); WHITE BLOOD COUNT 16.7 K/mm3 (4.0-10.0)
[2020-01-08 13:12] LABS: POTASSIUM 3.7 mmol/L (3.5-5.1)
[2020-01-08 13:14] LABS: ALBUMIN 3.8 g/dl (3.4-5.0); CALCIUM 8.8 mg/dL (8.5-10.1)
[2020-01-08 13:15] LABS: BLOOD UREA NITROGEN 10.4 mg/dL (7-18)
[2020-01-08 13:18] LABS: CREATININE 1.1 mg/dL (0.55-1.3)
[2020-01-08 13:19] LABS: BILIRUBIN,TOTAL 0.4 mg/dL (0.2-1); TOT PROT 7.4 g/dl (6.4-8.2)
[2020-01-08] MEDS ORDERED: ALBUTEROL SO4 HFA INHALER IH ONE ×2 (14:10→14:42)
[2020-01-08] MEDS ORDERED: ONDANSETRON 4 MG/2 ML VIAL IVPUSH ONE (14:16)
[2020-01-08] MEDS ORDERED: SODIUM CHLORIDE 0.9% 500 ML INFUS.BAG IV ONE (14:17)
== END 2020-01-08 16:06 | disposition home or self-care (01) ==
LOC: JER 11:34
PROC: 3E0F7GC Introduction of Other Therapeutic Substance into Respiratory Tract, Via Natural or Artificial Opening (ICD-10-PCS; principal; 2020-01-08)
PROC: 3E033NZ Introduction of Analgesics, Hypnotics, Sedatives into Peripheral Vein, Percutaneous Approach (ICD-10-PCS; 2020-01-08)
DX: J45.901 Unspecified asthma with (acute) exacerbation (principal); T40.2X1A Poisoning by other opioids, accidental (unintentional), initial encounter
CPT/HCPCS: 36415; 71045-TC-FY; 80053; 84703; 85025; 93005; 93010; 99285-25

== ENCOUNTER 2020-03-16 01:08 | Emergency (ER) | payer OTHER ==
[2020-03-16 01:21] VITALS: BMI 25.8
[2020-03-16] MEDS ORDERED: ALBUTEROL SO4 0.083% IH SOL 2.5 MG/3 ML VIAL.NEB. NEB ONE (01:36)
[2020-03-16] MEDS ORDERED: ALBUTEROL SO4 2.5/IPRATROPIUM 0.5 INH SOL 3 ML VIAL.NEB. NEB ONE ×3 (01:36→02:08)
[2020-03-16] MEDS ORDERED: DEXAMETHASONE SOD PHOSPHATE 10 MG/1 ML VIAL IVPUSH ONE (01:49)
[2020-03-16 02:51] LABS: EOS % 10.5 % (0-4.5); HEMATOCRIT 38.2 % (32.4-45.2); HEMOGLOBIN 12.6 GM/dL (10.7-15.3); LYMPH % 34.8 % (8-40); MCH 30.7 pg (25.7-33.7); MEAN CELL VOLUME 93.1 fl (80-96); MEAN PLT VOLUME 7.8 fl (7.5-11.1); MONO % 8.2 % (3.8-10.2); NEUT % 45.5 % (42.8-82.8); PLATELET COUNT 377 K/MM3 (134-434); RDW 13.4 % (11.6-15.6); WHITE BLOOD COUNT 8.8 K/mm3 (4.0-10.0)
[2020-03-16] MEDS ORDERED: DEXAMETHASONE SOD PHOSPHATE 10 MG/1 ML VIAL ONE (02:53)
[2020-03-16 03:09] LABS: POTASSIUM 5.3 mmol/L (3.5-5.1)
[2020-03-16 03:11] LABS: CALCIUM 8.9 mg/dL (8.5-10.1)
[2020-03-16 03:12] LABS: ALBUMIN 3.1 g/dl (3.4-5.0); BLOOD UREA NITROGEN 5.6 mg/dL (7-18)
[2020-03-16 03:15] LABS: CREATININE 0.9 mg/dL (0.55-1.3)
[2020-03-16 03:16] LABS: BILIRUBIN,TOTAL 0.2 mg/dL (0.2-1); TOT PROT 7.4 g/dl (6.4-8.2)
[2020-03-16 05:08] VITALS: BP 129/80
[2020-03-16 05:50] VITALS: PULSE 99; TEMP 98
== END 2020-03-16 05:50 | disposition home or self-care (01) ==
LOC: JER 01:08
PROC: 3E033NZ Introduction of Analgesics, Hypnotics, Sedatives into Peripheral Vein, Percutaneous Approach (ICD-10-PCS; principal; 2020-03-16)
PROC: 3E0F7GC Introduction of Other Therapeutic Substance into Respiratory Tract, Via Natural or Artificial Opening (ICD-10-PCS; 2020-03-16)
DX: J45.901 Unspecified asthma with (acute) exacerbation (principal); R06.02 Shortness of breath
CPT/HCPCS: 36415; 80053; 85025; 93005; 93010; 99285-25; J1100

== ENCOUNTER 2020-03-28 12:37 | Emergency (ER) | payer OTHER ==
[2020-03-28 12:56] VITALS: BMI 25.0
[2020-03-28] MEDS ORDERED: ALBUTEROL SO4 2.5/IPRATROPIUM 0.5 INH SOL 3 ML VIAL.NEB. NEB ONE ×2 (13:01→13:40)
[2020-03-28] MEDS ORDERED: MAGNESIUM SULFATE IN WATER 2 GM/50 ML IVPB IVPB ONE (13:04)
[2020-03-28] MEDS ORDERED: MAGNESIUM SULF 50% (8.12 MEQ/2 ML-1 GM VIAL) IVPB ONE (13:06)
[2020-03-28] MEDS: ALBUTEROL SO4 2.5/IPRATROPIUM 0.5 INH SOL 3 ML VIAL.NEB. NEB SCH ×4 (13:11→14:04)
[2020-03-28] MEDS ORDERED: diphenhydrAMINE HCL 25 MG CAPSULE (FP) PO ONE ×2 (13:39→13:40)
[2020-03-28 15:23] VITALS: TEMP 98.3
[2020-03-28 16:25] VITALS: BP 148/74
[2020-03-28 16:29] VITALS: PULSE 96
[2020-03-28] MEDS ORDERED: ALBUTEROL SO4 HFA INHALER IH ONE (16:31)
== END 2020-03-28 16:26 | disposition home or self-care (01) ==
LOC: JER 12:37
PROC: 3E0F7GC Introduction of Other Therapeutic Substance into Respiratory Tract, Via Natural or Artificial Opening (ICD-10-PCS; principal; 2020-03-28)
PROC: 3E033NZ Introduction of Analgesics, Hypnotics, Sedatives into Peripheral Vein, Percutaneous Approach (ICD-10-PCS; 2020-03-28)
DX: J45.901 Unspecified asthma with (acute) exacerbation (principal)
CPT/HCPCS: 71046-TC-FY; 99285-25; C9803; U0003

== ENCOUNTER 2020-03-30 10:16 | Inpatient (IN) | payer OTHER ==
[2020-03-30] MEDS ORDERED: MAGNESIUM SULF 50% (8.12 MEQ/2 ML-1 GM VIAL) IVPB ONE (10:24)
[2020-03-30] MEDS ORDERED: ALBUTEROL SO4 2.5/IPRATROPIUM 0.5 INH SOL 3 ML VIAL.NEB. NEB ONE ×2 (10:25→11:03)
[2020-03-30] MEDS ORDERED: MAGNESIUM SULFATE IN WATER 2 GM/50 ML IVPB IVPB ONE (11:03)
[2020-03-30] MEDS ORDERED: guaiFENesin/CODEINE 10 ML UNIT-DOSE CUPS PO ONE (13:11)
[2020-03-30] MEDS ORDERED: guaiFENesin/CODEINE 5 ML UNIT-DOSE CUPS PO ONE (13:24)
[2020-03-30] MEDS ORDERED: AZITHROMYCIN 250 MG TABLET PO ONE (13:34)
[2020-03-30] MEDS ORDERED: AZITHROMYCIN 250 MG TABLET ONE (13:51)
[2020-03-30 15:38] LABS: BASO % 0.5 % (0-2.0); EOS % 0.3 % (0-4.5); HEMATOCRIT 38.3 % (32.4-45.2); HEMOGLOBIN 12.9 GM/dL (10.7-15.3); MCH 30.9 pg (25.7-33.7); MCHC 33.8 g/dl (32.0-36.0); MEAN CELL VOLUME 91.4 fl (80-96); MEAN PLT VOLUME 7.4 fl (7.5-11.1); MONO % 1.2 % (3.8-10.2); PLATELET COUNT 502 K/MM3 (134-434); RBC 4.19 M/mm3 (3.60-5.2); RDW 13.4 % (11.6-15.6); WHITE BLOOD COUNT 10.1 K/mm3 (4.0-10.0)
[2020-03-30 15:58] LABS: POTASSIUM 4.7 mmol/L (3.5-5.1)
[2020-03-30 15:59] LABS: CALCIUM 9.2 mg/dL (8.5-10.1)
[2020-03-30 16:00] LABS: ALBUMIN 3.4 g/dl (3.4-5.0); BLOOD UREA NITROGEN 11.2 mg/dL (7-18)
[2020-03-30 16:04] LABS: CREATININE 1.2 mg/dL (0.55-1.3)
[2020-03-30 16:05] LABS: BILIRUBIN,TOTAL 0.2 mg/dL (0.2-1); TOT PROT 7.8 g/dl (6.4-8.2)
[2020-03-30 16:35] LABS: ANISOCYTOSIS 1+; MACROCYTOSIS 1+; PLATELET ESTIMATE INCREASED
[2020-03-30] MEDS ORDERED: ALBUTEROL SO4 0.083% IH SOL 2.5 MG/3 ML VIAL.NEB. NEB PRN (19:51)
[2020-03-30] MEDS ORDERED: ALBUTEROL SO4 0.083% IH SOL 2.5 MG/3 ML VIAL.NEB. NEB ONE (20:41)
[2020-03-30] MEDS ORDERED: methylPREDNISolone NA SUCC 125 MG/2 ML VIAL IVPUSH ONE (22:10)
[2020-03-30] MEDS ORDERED: ALBUTEROL SO4 2.5/IPRATROPIUM 0.5 INH SOL 3 ML VIAL.NEB. NEB PRN (22:10)
[2020-03-30 23:06] VITALS: BMI 25.8
[2020-03-30] MEDS: CEFTRIAXONE 1 GM in DEXTROSE 5%-WATER - 50 ML IVPB SCH (23:38)
[2020-03-31] MEDS: methylPREDNISolone NA SUCC 40 MG/1 ML VIAL IVPUSH SCH ×2 (03:11→12:13)
[2020-03-31] MEDS ORDERED: ENOXAPARIN NA (PORCINE) 40 MG/0.4 ML DISP.SYRIN SQ SCH (10:00)
[2020-03-31] MEDS ORDERED: AZITHROMYCIN IVPB 250 MG in DEXTROSE 5%-WATER - 250 ML IVPB SCH (10:00)
[2020-03-31 11:30] LABS: BASO % 0.1 % (0-2.0); HEMOGLOBIN 12.9 GM/dL (10.7-15.3); LYMPH % 11.9 % (8-40); MCH 30.4 pg (25.7-33.7); MCHC 33.1 g/dl (32.0-36.0); MEAN CELL VOLUME 91.8 fl (80-96); MEAN PLT VOLUME 7.8 fl (7.5-11.1); MONO % 2.6 % (3.8-10.2); NEUT % 85.4 % (42.8-82.8); PLATELET COUNT 613 K/MM3 (134-434); RBC 4.25 M/mm3 (3.60-5.2); RDW 13.4 % (11.6-15.6); WHITE BLOOD COUNT 11.9 K/mm3 (4.0-10.0)
[2020-03-31 11:50] LABS: POTASSIUM 4.7 mmol/L (3.5-5.1)
[2020-03-31] MEDS ORDERED: ALBUTEROL SO4 2.5/IPRATROPIUM 0.5 INH SOL 3 ML VIAL.NEB. NEB SCH (12:00)
[2020-03-31] MEDS: CEFTRIAXONE 1 GM in DEXTROSE 5%-WATER - 50 ML IVPB SCH (12:13)
[2020-03-31] MEDS ORDERED: BUDESONIDE/FORMETEROL FUMARATE 160/4.5 mcg INHALER IH SCH (12:15)
[2020-03-31 12:16] LABS: ALBUMIN 3.7 g/dl (3.4-5.0); BLOOD UREA NITROGEN 10.7 mg/dL (7-18); CALCIUM 9.9 mg/dL (8.5-10.1)
[2020-03-31 12:20] LABS: CREATININE 0.9 mg/dL (0.55-1.3)
[2020-03-31 12:21] LABS: BILIRUBIN,TOTAL 0.3 mg/dL (0.2-1)
[2020-03-31 12:22] LABS: TOT PROT 8.6 g/dl (6.4-8.2)
[2020-03-31 14:15] VITALS: BP 136/84; PULSE 91; TEMP 97.6
[2020-03-31] MEDS ORDERED: MONTELUKAST NA 10 MG TABLET PO SCH (22:00)
== END 2020-03-31 14:20 | disposition left against medical advice (07) | DRG 141 ==
LOC: JER 10:16 → JERBED 15:32 → J5WEST-2 22:00
PROVIDERS: ADMIT Internal Medicine; ATTEND Internal Medicine
DX: J45.901 Unspecified asthma with (acute) exacerbation (principal); F14.90 Cocaine use, unspecified, uncomplicated; F17.210 Nicotine dependence, cigarettes, uncomplicated
CPT/HCPCS: 36415; 71045-TC-FY; 80053; 85025; 93005; 93010; 94640; 99285-25; C9803; U0003

== ENCOUNTER 2020-04-05 08:57 | Emergency (ER) | payer OTHER ==
[2020-04-05] MEDS ORDERED: ALBUTEROL SO4 2.5/IPRATROPIUM 0.5 INH SOL 3 ML VIAL.NEB. NEB ONE (09:05)
[2020-04-05] MEDS ORDERED: MAGNESIUM SULF 50% (8.12 MEQ/2 ML-1 GM VIAL) ONE (09:15)
[2020-04-05] MEDS: ALBUTEROL SO4 2.5/IPRATROPIUM 0.5 INH SOL 3 ML VIAL.NEB. NEB SCH ×3 (09:15→09:45)
[2020-04-05] MEDS ORDERED: DEXAMETHASONE SOD PHOSPHATE 10 MG/1 ML VIAL ONE (09:15)
[2020-04-05 10:00] VITALS: BMI 31.1
[2020-04-05] MEDS: ALBUTEROL SO4 0.083% IH SOL 2.5 MG/3 ML VIAL.NEB. NEB SCH ×2 (10:02→11:05)
[2020-04-05 10:17] VITALS: TEMP 97.1
[2020-04-05] MEDS ORDERED: predniSONE 10 MG TABLET (UD) ONE (10:59)
[2020-04-05] MEDS ORDERED: predniSONE 20 MG TABLET (UD) ONE (10:59)
[2020-04-05 11:47] VITALS: BP 114/93; PULSE 130
== END 2020-04-05 12:25 | disposition left against medical advice (07) ==
LOC: JER 08:57
PROC: 3E0F7GC Introduction of Other Therapeutic Substance into Respiratory Tract, Via Natural or Artificial Opening (ICD-10-PCS; principal; 2020-04-05)
DX: J45.901 Unspecified asthma with (acute) exacerbation (principal)
CPT/HCPCS: 71045-TC-FY; 87804; 99285-25; C9803; U0003

== ENCOUNTER 2020-04-14 02:13 | Observation (INO) | payer OTHER ==
[2020-04-14] MEDS ORDERED: ALBUTEROL SO4 2.5/IPRATROPIUM 0.5 INH SOL 3 ML VIAL.NEB. NEB ONE ×2 (02:30→16:54)
[2020-04-14] MEDS ORDERED: ALBUTEROL SO4 0.083% IH SOL 2.5 MG/3 ML VIAL.NEB. NEB ONE ×5 (02:33→16:50)
[2020-04-14 03:15] LABS: BASO % 0.6 % (0-2.0); EOS % 7.8 % (0-4.5); HEMATOCRIT 37.7 % (32.4-45.2); HEMOGLOBIN 12.2 GM/dL (10.7-15.3); LYMPH % 19.6 % (8-40); MCH 29.9 pg (25.7-33.7); MCHC 32.4 g/dl (32.0-36.0); MEAN CELL VOLUME 92.3 fl (80-96); MEAN PLT VOLUME 8.8 fl (7.5-11.1); MONO % 6.3 % (3.8-10.2); NEUT % 65.7 % (42.8-82.8); PLATELET COUNT 403 K/MM3 (134-434); RBC 4.09 M/mm3 (3.60-5.2); RDW 14.2 % (11.6-15.6); WHITE BLOOD COUNT 14.2 K/mm3 (4.0-10.0)
[2020-04-14 03:23] LABS: CALCIUM 8.7 mg/dL (8.5-10.1)
[2020-04-14 03:24] LABS: ALBUMIN 3.2 g/dl (3.4-5.0); BLOOD UREA NITROGEN 12.5 mg/dL (7-18)
[2020-04-14 03:28] LABS: BILIRUBIN,TOTAL 0.2 mg/dL (0.2-1); TOT PROT 7.2 g/dl (6.4-8.2)
[2020-04-14 03:44] LABS: POTASSIUM 4.4 mmol/L (3.5-5.1)
[2020-04-14 04:57] LABS: N-TERMINAL BNP 95.6 pg/ml (5-125)
[2020-04-14] MEDS ORDERED: ALBUTEROL SO4 0.083% IH SOL 2.5 MG/3 ML VIAL.NEB. NEB PRN (06:22)
[2020-04-14] MEDS ORDERED: AZITHROMYCIN IVPB 500 MG/250 ML BAG IVPB ONE ×2 (10:30→11:38)
[2020-04-14] MEDS ORDERED: CEFTRIAXONE 1 GM in DEXTROSE 5%-WATER - 50 ML IVPB SCH (10:30)
[2020-04-14] MEDS ORDERED: ALBUTEROL SO4 HFA INHALER IH PRN (10:31)
[2020-04-14] MEDS ORDERED: methylPREDNISolone NA SUCC 125 MG/2 ML VIAL IVPUSH ONE (10:32)
[2020-04-14] MEDS ORDERED: CEFTRIAXONE 1 GM/50 ML BAG ONE (11:38)
[2020-04-14] MEDS ORDERED: methylPREDNISolone NA SUCC 125 MG/2 ML VIAL ONE (11:38)
[2020-04-14] MEDS ORDERED: methylPREDNISolone NA SUCC 40 MG/1 ML VIAL ONE (15:11)
[2020-04-14] MEDS: methylPREDNISolone NA SUCC 40 MG/1 ML VIAL IVPUSH SCH ×2 (15:14→22:56)
[2020-04-14] MEDS: ALBUTEROL SO4 2.5/IPRATROPIUM 0.5 INH SOL 3 ML VIAL.NEB. NEB SCH ×2 (16:57→21:05)
[2020-04-14] MEDS: BUDESONIDE/FORMETEROL FUMARATE 160/4.5 mcg INHALER IH SCH (22:54)
[2020-04-15] MEDS ORDERED: diphenhydrAMINE HCL 25 MG CAPSULE (FP) PO ONE (00:45)
[2020-04-15 02:20] VITALS: BMI 22.1
[2020-04-15] MEDS: methylPREDNISolone NA SUCC 40 MG/1 ML VIAL IVPUSH SCH ×3 (04:21→15:25)
[2020-04-15 07:44] LABS: BASO % 0.3 % (0-2.0); HEMATOCRIT 36.3 % (32.4-45.2); HEMOGLOBIN 12.1 GM/dL (10.7-15.3); LYMPH % 6.1 % (8-40); MCH 30.6 pg (25.7-33.7); MCHC 33.4 g/dl (32.0-36.0); MEAN CELL VOLUME 91.7 fl (80-96); MEAN PLT VOLUME 8.4 fl (7.5-11.1); MONO % 3.3 % (3.8-10.2); NEUT % 90.3 % (42.8-82.8); PLATELET COUNT 421 K/MM3 (134-434); RBC 3.96 M/mm3 (3.60-5.2); WHITE BLOOD COUNT 17.2 K/mm3 (4.0-10.0)
[2020-04-15] MEDS: ALBUTEROL SO4 2.5/IPRATROPIUM 0.5 INH SOL 3 ML VIAL.NEB. NEB SCH ×3 (08:00→15:14)
[2020-04-15 08:02] LABS: CALCIUM 8.9 mg/dL (8.5-10.1)
[2020-04-15 08:03] LABS: ALBUMIN 3.1 g/dl (3.4-5.0)
[2020-04-15 08:06] LABS: BILIRUBIN,TOTAL 0.2 mg/dL (0.2-1); CREATININE 0.8 mg/dL (0.55-1.3); TOT PROT 7.2 g/dl (6.4-8.2)
[2020-04-15] MEDS: BUDESONIDE/FORMETEROL FUMARATE 160/4.5 mcg INHALER IH SCH (08:59)
[2020-04-15] MEDS ORDERED: FLU VACCINE (FLULAVAL) PF 60 MCG/0.5 ML SYRINGE 2020-2021 IM ONE (09:00)
[2020-04-15] MEDS ORDERED: ENOXAPARIN NA (PORCINE) 40 MG/0.4 ML DISP.SYRIN SQ SCH (10:00)
[2020-04-15 12:46] VITALS: PULSE 125
[2020-04-15 14:54] VITALS: BP 137/70; TEMP 98.9
== END 2020-04-15 17:12 | disposition left against medical advice (07) ==
LOC: JER 02:13 → UNDOADMOB 06:53 → INTOOBSV 06:53 → JERBED 06:53 → J7W 20:38 → JERBED 20:38 → J7W 04-15 12:01
PROVIDERS: ADMIT Family Medicine Geriatric Medicine; ATTEND Family Medicine Geriatric Medicine
PROC: 3E0F7GC Introduction of Other Therapeutic Substance into Respiratory Tract, Via Natural or Artificial Opening (ICD-10-PCS; principal; 2020-04-15)
PROC: 3E03329 Introduction of Other Anti-infective into Peripheral Vein, Percutaneous Approach (ICD-10-PCS; 2020-04-15)
PROC: 3E033GC Introduction of Other Therapeutic Substance into Peripheral Vein, Percutaneous Approach (ICD-10-PCS; 2020-04-15)
DX: J45.901 Unspecified asthma with (acute) exacerbation (principal); F17.210 Nicotine dependence, cigarettes, uncomplicated
CPT/HCPCS: 36415; 71045-TC-FY; 80053; 83880; 84484; 84703; 85025; 93005; 93010; 94640; 96365; 96375; 99285-25; C9803; G0378; U0003

== ENCOUNTER 2021-07-02 13:40 | Inpatient (IN) | payer OTHER ==
[2021-07-02] MEDS ORDERED: ALBUTEROL SO4 2.5/IPRATROPIUM 0.5 INH SOL 3 ML VIAL.NEB. NEB ONE ×4 (14:30→18:12)
[2021-07-02] MEDS ORDERED: DEXAMETHASONE SOD PHOSPHATE 10 MG/1 ML VIAL IM ONE (14:30)
[2021-07-02] MEDS ORDERED: DEXAMETHASONE SOD PHOSPHATE 10 MG/1 ML VIAL ONE (14:42)
[2021-07-02] MEDS ORDERED: MAGNESIUM SULF 50% (8.12 MEQ/2 ML-1 GM VIAL) IVPB ONE (15:58)
[2021-07-02 17:48] LABS: ALBUMIN 3.8 g/dl (3.4-5.0); CALCIUM 9.2 mg/dL (8.5-10.1)
[2021-07-02 17:49] LABS: BLOOD UREA NITROGEN 11.4 mg/dL (7-18); EOS % 4.7 % (0-4.5); HEMATOCRIT 46.1 % (32.4-45.2); LYMPH % 6.8 % (8-40); MCH 29.6 pg (25.7-33.7); MCHC 32.4 g/dl (32.0-36.0); MEAN CELL VOLUME 91.4 fl (80-96); MEAN PLT VOLUME 8.5 fl (7.5-11.1); NEUT % 86.5 % (42.8-82.8); RBC 5.05 M/mm3 (3.60-5.2); RDW 15.1 % (11.6-15.6); WHITE BLOOD COUNT 11.5 K/mm3 (4.0-10.0)
[2021-07-02 17:52] LABS: CREATININE 0.8 mg/dL (0.55-1.3)
[2021-07-02 17:54] LABS: BILIRUBIN,TOTAL 0.4 mg/dL (0.2-1); TOT PROT 7.7 g/dl (6.4-8.2)
[2021-07-02 18:04] LABS: PLATELET ESTIMATE DECREASED
[2021-07-02] MEDS ORDERED: MAGNESIUM SULFATE IN WATER 2 GM/50 ML IVPB IVPB ONE (18:12)
[2021-07-02] MEDS ORDERED: ALBUTEROL SO4 HFA INHALER IH PRN (20:44)
[2021-07-02] MEDS ORDERED: AZITHROMYCIN IVPB 500 MG/250 ML BAG IVPB ONE (21:00)
[2021-07-02] MEDS ORDERED: CEFTRIAXONE 1 GM in DEXTROSE 5%-WATER - 50 ML IVPB SCH (21:00)
[2021-07-02 21:03] VITALS: TEMP 98.2; BMI 23.6
[2021-07-02] MEDS ORDERED: HEPARIN NA (PORCINE) 5,000 UNITS/ML 1ML VIAL SQ SCH (22:00)
[2021-07-02] MEDS ORDERED: DEXTROSE 5%-WATER - 50 ML IVPB ONE (22:42)
[2021-07-02] MEDS ORDERED: cefTRIAXone SODIUM 1 GM VIAL ONE (22:42)
[2021-07-03] MEDS ORDERED: methylPREDNISolone NA SUCC 40 MG/1 ML VIAL IVPUSH SCH (02:00)
[2021-07-03 06:04] VITALS: BP 136/74; PULSE 99
[2021-07-03] MEDS ORDERED: AZITHROMYCIN IVPB 250 MG in DEXTROSE 5%-WATER - 250 ML IVPB SCH (10:00)
[2021-07-03] MEDS ORDERED: ALBUTEROL SO4 2.5/IPRATROPIUM 0.5 INH SOL 3 ML VIAL.NEB. NEB SCH (12:00)
== END 2021-07-03 12:39 | disposition left against medical advice (07) | DRG 141 ==
LOC: JER 13:40 → JERBED 18:31 → J6S 20:41
PROVIDERS: ADMIT Internal Medicine; ATTEND Internal Medicine
DX: J45.901 Unspecified asthma with (acute) exacerbation (principal); F17.210 Nicotine dependence, cigarettes, uncomplicated; F14.90 Cocaine use, unspecified, uncomplicated; Z53.29 Procedure and treatment not carried out because of patient's decision for other reasons
CPT/HCPCS: 0241U-QW; 36415; 71045-TC-FY; 80053; 82962; 84703; 85025; 87807; 93005; 93010; 99285-25; C9803-CS; J1100; U0003; U0005

== ENCOUNTER 2023-01-02 13:20 | Emergency (ER) | payer OTHER ==
[2023-01-02 13:32] VITALS: BP 144/93; PULSE 78; RESP 19; TEMP 98.1; BMI 24.8
[2023-01-02] MEDS ORDERED: MAGNESIUM SULF 50% (8.12 MEQ/2 ML-1 GM VIAL) IVPB ONE (14:23)
[2023-01-02] MEDS ORDERED: DEXAMETHASONE SOD PHOSPHATE 10 MG/1 ML VIAL PO ONE (14:23)
[2023-01-02] MEDS ORDERED: ALBUTEROL SO4 2.5/IPRATROPIUM 0.5 INH SOL 3 ML VIAL.NEB. NEB ONE (14:54)
[2023-01-02] MEDS ORDERED: MAGNESIUM SULFATE IN WATER 2 GM/50 ML IVPB IVPB ONE (14:55)
[2023-01-02] MEDS ORDERED: DEXAMETHASONE SOD PHOSPHATE 10 MG/1 ML VIAL ONE (14:55)
[2023-01-02] MEDS: ALBUTEROL SO4 2.5/IPRATROPIUM 0.5 INH SOL 3 ML VIAL.NEB. NEB SCH ×3 (15:07→15:37)
[2023-01-02 15:26] LABS: BASO % 0.8 % (0-2.0); EOS % 5.3 % (0-4.5); HEMATOCRIT 44.6 % (32.4-45.2); HEMOGLOBIN 14.8 GM/dL (10.7-15.3); MCHC 33.1 g/dl (32.0-36.0); MEAN CELL VOLUME 93.6 fl (80-96); MEAN PLT VOLUME 9.1 fl (7.5-11.1); MONO % 8.6 % (3.8-10.2); NEUT % 58.3 % (42.8-82.8); PLATELET COUNT 333 10^3/uL (134-434); RBC 4.77 M/mm3 (3.60-5.2); RDW 13.9 % (11.6-15.6); WHITE BLOOD COUNT 12.8 K/mm3 (4.0-10.0)
[2023-01-02 15:38] LABS: POTASSIUM 4.1 mmol/L (3.5-5.1)
[2023-01-02 15:40] LABS: CALCIUM 9.1 mg/dL (8.5-10.1)
[2023-01-02 15:41] LABS: ALBUMIN 3.2 g/dl (3.4-5.0); BLOOD UREA NITROGEN 12.9 mg/dL (7-18); MAGNESIUM 1.9 mg/dL (1.8-2.4)
[2023-01-02 15:45] LABS: BILIRUBIN,TOTAL 0.2 mg/dL (0.2-1); TOT PROT 6.7 g/dl (6.4-8.2)
== END 2023-01-02 17:34 | disposition home or self-care (01) ==
LOC: JER 13:20
PROC: 3E033GC Introduction of Other Therapeutic Substance into Peripheral Vein, Percutaneous Approach (ICD-10-PCS; principal; 2023-01-02)
PROC: 3E02329 Introduction of Other Anti-infective into Muscle, Percutaneous Approach (ICD-10-PCS; 2023-01-02)
PROC: 3E0F7GC Introduction of Other Therapeutic Substance into Respiratory Tract, Via Natural or Artificial Opening (ICD-10-PCS; 2023-01-02)
DX: R05.9 Cough, unspecified (principal); R06.02 Shortness of breath; R10.31 Right lower quadrant pain; R10.32 Left lower quadrant pain; J45.901 Unspecified asthma with (acute) exacerbation; Z20.822 Contact with and (suspected) exposure to COVID-19
CPT/HCPCS: 0241U-QW; 36415; 71045-TC-FY; 80053; 83735; 84484; 84703; 85025; 87491; 87591; 99284-25; J1100

== ENCOUNTER 2023-01-15 10:50 | Emergency (ER) | payer OTHER ==
[2023-01-15 10:58] VITALS: TEMP 99.5; BMI 25.0
[2023-01-15] MEDS ORDERED: ALBUTEROL SO4 2.5/IPRATROPIUM 0.5 INH SOL 3 ML VIAL.NEB. NEB ONE (11:07)
[2023-01-15] MEDS: ALBUTEROL SO4 2.5/IPRATROPIUM 0.5 INH SOL 3 ML VIAL.NEB. NEB SCH ×4 (11:10→11:55)
[2023-01-15] MEDS ORDERED: MAGNESIUM SULFATE IN WATER 2 GM/50 ML IVPB IVPB ONE ×2 (11:10→11:34)
[2023-01-15] MEDS ORDERED: methylPREDNISolone NA SUCC 125 MG/2 ML VIAL IVPUSH ONE (11:11)
[2023-01-15] MEDS ORDERED: ACETAMINOPHEN 1000 MG/100 ML BAG IVPB ONE (11:13)
[2023-01-15] MEDS ORDERED: SODIUM CHLORIDE 0.9% 500 ML INFUS.BAG IV ONE (11:13)
[2023-01-15] MEDS ORDERED: TERBUTALINE SULFATE 1 MG/1 ML VIAL SQ ONE ×2 (11:18→11:56)
[2023-01-15] MEDS ORDERED: methylPREDNISolone NA SUCC 125 MG/2 ML VIAL ONE (11:34)
[2023-01-15 11:42] LABS: HEMATOCRIT 42.9 % (32.4-45.2); MCHC 32.6 g/dl (32.0-36.0); MEAN PLT VOLUME 8.7 fl (7.5-11.1); PLATELET COUNT 302 10^3/uL (134-434); RBC 4.51 M/mm3 (3.60-5.2); RDW 14.1 % (11.6-15.6); WHITE BLOOD COUNT 22.6 K/mm3 (4.0-10.0)
[2023-01-15 11:52] LABS: CALCIUM 8.9 mg/dL (8.5-10.1)
[2023-01-15 11:53] LABS: ALBUMIN 3.4 g/dl (3.4-5.0); BLOOD UREA NITROGEN 13.1 mg/dL (7-18)
[2023-01-15 11:56] LABS: CREATININE 0.9 mg/dL (0.55-1.3)
[2023-01-15] MEDS ORDERED: ACETAMINOPHEN INJECTION 100 ML IVPB ONE (11:56)
[2023-01-15 11:57] LABS: BILIRUBIN,TOTAL 0.7 mg/dL (0.2-1)
[2023-01-15 12:06] LABS: ANISOCYTOSIS 2+; MACROCYTOSIS 0
[2023-01-15] MEDS ORDERED: ALBUTEROL SO4 0.083% IH SOL 2.5 MG/3 ML VIAL.NEB. NEB ONE ×2 (12:21→12:40)
[2023-01-15] MEDS: ALBUTEROL SO4 0.083% IH SOL 2.5 MG/3 ML VIAL.NEB. NEB SCH ×4 (12:40→13:25)
[2023-01-15 13:13] VITALS: BP 136/74; RESP 30
[2023-01-15 13:43] VITALS: PULSE 113
[2023-01-15 14:01] LABS: POTASSIUM 3.9 mmol/L (3.5-5.1)
[2023-01-15 14:03] LABS: ALBUMIN 3.2 g/dl (3.4-5.0); CALCIUM 8.3 mg/dL (8.5-10.1)
[2023-01-15 14:07] LABS: BILIRUBIN,TOTAL 0.8 mg/dL (0.2-1); TOT PROT 6.6 g/dl (6.4-8.2)
== END 2023-01-15 15:21 | disposition left against medical advice (07) ==
LOC: JER 10:50
PROC: 3E033GC Introduction of Other Therapeutic Substance into Peripheral Vein, Percutaneous Approach (ICD-10-PCS; principal; 2023-01-15)
PROC: 3E033NZ Introduction of Analgesics, Hypnotics, Sedatives into Peripheral Vein, Percutaneous Approach (ICD-10-PCS; 2023-01-15)
PROC: 3E033GC Introduction of Other Therapeutic Substance into Peripheral Vein, Percutaneous Approach (ICD-10-PCS; 2023-01-15)
PROC: 3E023GC Introduction of Other Therapeutic Substance into Muscle, Percutaneous Approach (ICD-10-PCS; 2023-01-15)
PROC: 3E0F7GC Introduction of Other Therapeutic Substance into Respiratory Tract, Via Natural or Artificial Opening (ICD-10-PCS; 2023-01-15)
PROC: 3E0F7GC Introduction of Other Therapeutic Substance into Respiratory Tract, Via Natural or Artificial Opening (ICD-10-PCS; 2023-01-15)
DX: R06.2 Wheezing (principal); R50.9 Fever, unspecified; R07.9 Chest pain, unspecified; R06.82 Tachypnea, not elsewhere classified; J45.902 Unspecified asthma with status asthmaticus; R00.0 Tachycardia, unspecified; J45.901 Unspecified asthma with (acute) exacerbation; Z20.822 Contact with and (suspected) exposure to COVID-19
CPT/HCPCS: 0241U-QW; 36415; 71045-TC-FY; 80053; 83735; 84703; 85025; 93005; 93010; 99291